=== PATIENT | female | born 1955 | race Caucasian/White ===

== ENCOUNTER 2024-05-27 10:10 | Observation (INO) | payer MEDICARE, MEDICAID, SELFPAY ==
[2024-05-27] VITALS (72 sets, daily range): BP systolic 129–190; BP diastolic 60–108; PULSE 71–89; RESP 14–31; TEMP 36.2–37.3; O2SAT 92–97
--- NOTE | 2024-05-27 10:15 | RT.EKG_ITS ---
APPROVED REPORT Exam: Resting ECG Reason for Exam: chest pain Patient Location: E HR:82 bpm ECG Measurements Heart Rate 82 AXIS WI 155 P 81 QRSd 89 QRS 85 QT 371 T 66 QTc 432 Conclusion Incomplete analysis due to missing data in precordial lead(s) Sinus rhythm...normal P axis, V-rate 60- 99
[2024-05-27 12:22] LABS: Abs Immature Grans 0.02 10^3/uL (0.0-0.06); Absolute Basophil Count 0.05 10^3/uL (0.0-0.2); Absolute Eosinophil Count 0.02 10^3/uL (0.0-0.7); Absolute Monocyte Count 0.63 10^3/uL (0.1-0.8); Absolute Neutrophil Count 4.55 10^3/uL (1.2-6.7); Basophils % 0.8 %; Eosinophils % 0.3 %; HCT 42.2 % (36.0-46.0); HGB 15.1 g/dL (11.2-15.7); Immature Grans % 0.3 %; Lymphocytes % 17.3 %; MCHC 35.8 % (32.0-36.0); MCV 84 fL (80-95); MPV 9.1 fL (8.0-11.0); Monocytes % 9.9 %; Neutrophils % 71.4 %; Platelet Count 205 10^3/uL (130-400); RBC 5.04 10^6/uL (3.93-5.22); RDW 12.4 % (11.7-14.6); RDW-SD 37.5 fL; WBC 6.37 10^3/uL (4.4-10.8)
[2024-05-27] MEDS: MORPHine 4 MG/ML SYR IVP (12:25)
[2024-05-27 12:50] LABS: ALT 52 U/L (14-59); AST 55 U/L (15-37); Albumin 3.8 g/dL (3.4-5.0); Alkaline Phosphatase 197 U/L (46-116); Anion Gap 8.7 mmol/L (3-11); BUN 10 mg/dL (7-18); Bilirubin, Total 0.7 mg/dL (0.2-1.0); CO2 26.3 mmol/L (21.0-32.0); CREATININE 0.5 mg/dL (0.55-1.02); Calcium 9.1 mg/dL (8.5-10.1); Chloride 87 mmol/L (98-107); Glucose 95 mg/dL (74-106); Lipase 38 U/L (<78); NT-proBNP 239 pg/mL (<300); Potassium 4.3 mmol/L (3.5-5.1); Total Protein 7.3 g/dL (6.4-8.2); Troponin I 11 ng/L (<or=51)
[2024-05-27 12:57] LABS: Sodium 122 mmol/L (136-145)
[2024-05-27] MEDS: LORazepam 2 MG/ML VIAL 1 MG IVP (13:27)
[2024-05-27] MEDS: Normal Saline - Diluent 50 ML VIAL IJ (13:43)
[2024-05-27] MEDS: Omnipaque 350 MG/ML 500 ML BTL-Imaging package 70 ML IJ (13:48)
[2024-05-27 13:49] LABS: Troponin I 10 ng/L (<or=51)
--- NOTE | 2024-05-27 13:53 | DI.CT_ITS ---
Exam(s) CT CHEST PE ABD PELVIS W EXAM: CT CHEST PE ABD PELVIS W CLINICAL HISTORY: chest pain, malignency lung. TECHNIQUE: Imaging Protocol: Axial CT angiography was performed with multi-slice acquisition and mu lti-planar and/or 3D reconstructions. Computer aided detection (CAD) was utilized. CONTRAST MATERIAL: Intravenous: Omnipaque 350contrast volume:70 mL COMPARISON: CT CT CHEST WO CONTRAST from 01/03/2024 FINDINGS: CHEST: Tracheobronchial tree: There is a right hilar mass which is compressing the right upper and right low er lobe bronchi. There is also compression of the pulmonary arteries and veins. The mass is shown i nterval increase in size compared to 01/03/2024. It measures at least 3.9 x 5.2 cm. No evidence of bronchiectasis. Pulmonary parenchyma: Moderate emphysematous changes are present in the lungs. The left lung is katherine r. There are infiltrates seen in the right upper and right lower lobes. Postobstructive pneumonia o r atelectasis should be considered. These have progressed since the prior examination. Pulmonary Arteries: No evidence of filling defect to suggest pulmonary emboli. Mediastinum and Carolyn: There is a subcarinal enlarged lymph node present. The esophagus is unremarkab le. Visualized thyroid gland: Unremarkable. Pleura: No effusion or pneumothorax. Heart: The heart is not dilated. Coronary artery calcification is present. No pericardial effusion. Aorta: Thoracic aorta non-dilated. No evidence of dissection. Atherosclerotic calcification is prese nt. Bones: Within normal limits for the patient's age. Stable mild compression deformities at T11 and T12 . Degenerative changes are seen throughout the thoracic spine. No new sclerotic areas are seen in t he bones. Soft tissues: Unremarkable. ABDOMEN: Liver: Normal density. There are innumerable hepatic masses consistent with metastatic disease. Portal, Superior Mesenteric, and Splenic Veins: Unremarkable. Gallbladder and Biliary Tract: No radiodense calculus or dilation. Pancreas: Normal density, no abnormal calcifications or inflammatory process. Spleen: Normal. Adrenals: There is nodularity of the left adrenal gland. Metastatic focus cannot be excluded. The r ight adrenal gland is unremarkable. Kidneys: Normal size, contour and axis. No radiodense stones or obstructive uropathy. There is a simp le left renal cysts. No follow-up is recommended. Abdominal Aorta: Abdominal portion non-dilated. Atherosclerotic calcification is present. Bowel: No obstruction or bowel wall thickening. No evidence of appendicitis. The stomach is incomple tely distended limiting evaluation. Peritoneal Cavity: No ascites, collection or mesenteric inflammatory response. No free air. Lymph Nodes: Within normal limits. Bones: Within normal limits for the patient's age. No aggressive osseous lesions are present. Soft Tissues: There is a very small fat containing umbilical hernia. PELVIS: Bladder: Symmetric distention, no gross wall thickening. Reproductive Organs: There is a 1.9 cm left adnexal cyst which is likely ovarian and physiologic. Lymph Nodes: Within normal limits. Bones: Within normal limits. IMPRESSION: 1. No evidence pulmonary embolism, thoracic aortic dissection or aneurysm. 2. Interval increase in size of the right hilar mass. There is resultant narrowing of the pulmonary arteries, veins and bronchi. 3. Progressive infiltrates are seen in the right upper and the right lower lobes likely reflecting po stobstructive atelectasis or pneumonia. 4. Moderate emphysematous changes are present. 5. Multiple hepatic masses consistent with hepatic metastatic disease. 6. Nodularity of the left adrenal gland. Metastatic focus cannot be excluded. RADIATION DOSE DELIVERED: 464.55mGy.cm Total DLP DATA REPOSITORY: All CT scans at this facility are submitted to the National Radiology Data Registry (NRDR) Dose Index Registry (DIR) with the [employer] (A[employer]). RADIATION OPTIMIZATION: All CT scans at this facility use at least one of these dose optimization te chniques: automated exposure control; mA and/or kV adjustment per patient size (includes targeted exa ms where dose is matched to clinical indication); or iterative reconstruction.
[2024-05-27 14:13] LABS: Bilirubin Negative (Negative); Blood Small (Negative); Clarity Clear (Clear); Glucose Negative (Negative); Ketones Trace mg/dL (Negative); Leukocyte Esterase Negative (Negative); Nitrite Negative (Negative); Urobilinogen 0.2 mg/dL (Up to 0.2); pH 7.5 (5-8)
[2024-05-27 14:32] LABS: Bacteria Few HPF (Negative); C & S Indicated? No; Casts Negative LPF (Negative); Crystals Moderate Amorphous HPF (Negative); Epithelial Cells Few HPF (Negative); Mucus Moderate (Negative); Other Cells Negative (Negative); WBC 0-2 HPF (0-5)
--- NOTE | 2024-05-27 15:55 | ED.GENADUL_ITS ---
Discharge Plan Discharge Details Chief Complaint: SOB Primary Care Provider: Edwardo Valenzuela ED Provider: Natividad Jeronimo Home Meds and New Rx's Prescriptions: No Action Atrovent HFA 17 mcg/actuation HFA aerosol inhaler See Rx Instructions inhalation DIRECTED Rx Instructions: inhaled as directed; vrhleorsmr-ivffxjvkqf-ham-cod [id number] mg capsule 1 cap PO QID PRN oxycodone 5 mg tablet 5 mg PO BID PRN albuterol sulfate [Ventolin HFA] 90 mcg/actuation HFA aerosol inhaler See Rx Instructions inhalation DIRECTED Rx Instructions: inhaled as directed; HPI General Date/Time Provider Initiated Documentation: 05/27/24 10:12 . HPI Narrative: The patient is a 68-year-old female with a history of tobacco abuse, COPD, and migraine headaches who presents with chest pain, shortness of breath, and weakness. She reports that these symptoms began this morning, prompting her to seek immediate medical attention. She is scheduled for a bronchoscopy at [facility] on 06/06/2023 but due to the onset of chest pain and weakness, she sought immediate medical attention. The majority of her care has been done at [facility], but she would like a second opinion. She does not have any hemoptysis or new calf pain or swelling. She continues to smoke tobacco and has experienced weight loss. Related Data Home Medications ?Medication ?Instructions ?Recorded ?Confirmed albuterol sulfate 90 mcg/actuation See Rx Instructions inhalation 01/11/24 05/27/24 aerosol inhaler (Ventolin HFA) DIRECTED butalbital 50 mg-acetaminophen 325 1 cap PO QID PRN 01/11/24 05/27/24 mg-caffeine 40 mg-codeine 30 mg cap ipratropium bromide 17 See Rx Instructions inhalation 01/11/24 05/27/24 mcg/actuation HFA aerosol inhaler DIRECTED (Atrovent HFA) oxycodone 5 mg tablet 5 mg PO BID PRN 01/11/24 05/27/24 Allergies Allergy/AdvReac Type Severity Reaction Status Date / Time aspirin Allergy Unknown Unknown Verified 01/11/24 14:15 prednisone Allergy Unknown Unknown Verified 01/11/24 14:15 tetracycline Allergy Unknown Unknown Verified 01/11/24 14:15 insect venom AdvReac Unknown urticaria Verified 01/11/24 14:15 Penicillins AdvReac Unknown urticaria Verified 01/11/24 14:15 General Stated Complaint: SOB ROBERT: 3 Exam Narrative Exam Narrative: General Appearance: Patient is alert and oriented, but very anxious. Vital signs: Within normal limits. HEENT: Within normal limits. Respiratory: Diminished lung sounds are noted bilaterally. Gastrointestinal: No abdominal tenderness is present. Skin: Warm and dry, no rash. Neurological: Patient is fully alert and oriented, showing no signs of respiratory distress. Psychiatric: Patient is very anxious. Course Vital Signs Vital signs: Vital Signs Pulse 80 05/27/24 10:30 Respiratory Rate 18 05/27/24 10:30 Blood Pressure 183/97 H 05/27/24 10:30 Pulse Oximetry 95 05/27/24 10:30 Pulse 79 05/27/24 14:46 Pulse 80 05/27/24 14:50 Respiratory Rate 24 05/27/24 14:50 Respiratory Effort Normal, Non-Labored 05/27/24 12:17 Respiratory Depth Normal 05/27/24 12:17 Respiratory Pattern Normal 05/27/24 12:17 Blood Pressure 163/94 H 05/27/24 14:46 Blood Pressure Mean 114 05/27/24 14:46 Blood Pressure Position Sitting 05/27/24 12:16 Pulse Oximetry 94 05/27/24 14:31 Oxygen Delivery Method Room Air 05/27/24 12:16 Oxygen Flow Rate 0 05/27/24 12:16 Pain Level 7 05/27/24 12:25 Comment shoulder up into neck/spine 05/27/24 12:16 Lab/Test Results Lab/Test Results: Laboratory Tests Range/Units 05/27/24 05/27/24 05/27/24 12:13 13:20 13:33 WBC (4.4-10.8) 10^3/uL 6.37 RBC (3.93-5.22) 10^6/uL 5.04 Hgb (11.2-15.7) g/dL 15.1 Hct (36.0-46.0) % 42.2 MCV (80-95) fL 84 MCH (27.0-33.0) pg 30.0 MCHC (32.0-36.0) % 35.8 RDW (11.7-14.6) % 12.4 Plt Count (130-400) 10^3/uL 205 MPV (8.0-11.0) fL 9.1 Immature Gran % % 0.3 Neutrophils % % 71.4 Lymphocytes % % 17.3 Monocytes % % 9.9 Eosinophils % % 0.3 Basophils % % 0.8 Nucleated RBC % (0.0-0.3) % 0.0 Absolute Neutrophils (1.2-6.7) 10^3/uL 4.55 Absolute Lymphocytes (1.2-3.4) 10^3/uL 1.10 L Absolute Monocytes (0.1-0.8) 10^3/uL 0.63 Absolute Eosinophils (0.0-0.7) 10^3/uL 0.02 Absolute Basophils (0.0-0.2) 10^3/uL 0.05 Sodium (136-145) mmol/L 122 L* Potassium (3.5-5.1) mmol/L 4.3 Chloride (98-107) mmol/L 87 L Carbon Dioxide (21.0-32.0) mmol/L 26.3 Anion Gap (3-11) mmol/L 8.7 BUN (7-18) mg/dL 10 Creatinine (0.55-1.02) mg/dL 0.5 L Est GFR (CKD-EPI 2020) (mL/min/1.73m2) 102.10 Glucose (74-106) mg/dL 95 Calcium (8.5-10.1) mg/dL 9.1 Total Bilirubin (0.2-1.0) mg/dL 0.7 AST (15-37) U/L 55 H ALT (14-59) U/L 52 Alkaline Phosphatase (46-116) U/L 197 H Troponin I (<or=51) ng/L 11 10 NT-Pro-B Natriuret Pep (<300) pg/mL 239 Total Protein (6.4-8.2) g/dL 7.3 Albumin (3.4-5.0) g/dL 3.8 Lipase (<78) U/L 38 Urine Color (Yellow) Yellow Urine Clarity (Clear) Clear Urine pH (5-8) 7.5 Ur Specific [place] (1.005-1.025) 1.020 Urine Protein (Neg-Trace) mg/dL 100 H Urine Ketones (Negative) mg/dL Trace H Urine Blood (Negative) Small H Urine Nitrite (Negative) Negative Urine Bilirubin (Negative) Negative Urine Urobilinogen (Up to 0.2) mg/dL 0.2 Ur Leukocyte Esterase (Negative) Negative Urine RBC (0-2) HPF 3-5 H Urine WBC (0-5) HPF 0-2 Ur Epithelial Cells (Negative) HPF Few Urine Crystals (Negative) HPF Moderate Amorphous Urine Bacteria (Negative) HPF Few Urine Casts (Negative) LPF Negative Urine Mucus (Negative) Moderate Urine Other (Negative) Negative Ur Culture Indicated? No Urine Glucose (Negative) mg/dL Negative Medical Decision Making Laboratory Studies Hyponatremia at 122 and hypochloremia at 87. Imaging CTA chest, abdomen, and pelvis shows perihilar lung mass compressing on pulmonary arteries and vein with concern for metastases to liver on CT abdomen and pelvis. No obvious pulmonary embolism. Initial Assessment: 68-year-old female with history of tobacco abuse, COPD, and migraine headaches presents with chest pain, shortness of breath, and weakness. Scheduled for bronchoscopy at [facility] on the but presents due to acute symptoms. Differential Diagnosis: - Pulmonary carcinoma: Suspected due to lung mass seen on CTA compressing pulmonary arteries and veins. Potential metastases to liver noted on CT abdomen and pelvis. No definitive diagnosis of SIADH but considered due to hyponatremia. ED Course: - Ordered CTA chest, abdomen, and pelvis. - CTA shows perihilar lung mass compressing pulmonary arteries and veins, concern for metastases to liver. - No pulmonary embolism noted. - Labs: Hyponatremia at 122, hypochloremia at 87. - Contacted [facility] for transfer due to worsening symptoms and need for expedited care. - Care transitioned to oncoming provider at 1554. Final Assessment: Patient with chest pain, shortness of breath, and weakness likely related to lung mass and hyponatremia. CTA and labs reviewed, transfer to [facility] initiated for further care. Clinical Impression: - Chest pain - Pulmonary carcinoma - Hyponatremia Disposition: - Transfer: Pending transfer to [facility] for expedited care. MDM Components Evaluation: - Number of Differential Diagnoses or Management Options: Pulmonary carcinoma, SIADH. - Amount and Complexity of Data Reviewed: CTA chest, abdomen, and pelvis; lab results. - Risk of Complication and Morbidity or Mortality: High due to potential metastases and severe hyponatremia. Quality:SDND Health Related Social Needs: No Data to Display PFSH All Active Problems (Updated 01/11/24 @ 13:57 by Marilia Dove) Sacroiliac inflammation (Acute) Osteopenia (Acute) Nicotine dependence (Acute) Neck pain (Acute) Migraine (Chronic) Malignant neoplasm of skin (Acute) Lyme disease (Acute) Lung nodules (Acute) Hypoglycemia (Acute) History of Lyme disease (Acute) History of chest pain (Acute) Exposure to lead (Acute) Disc disease, degenerative, lumbar or lumbosacral (Acute) Degeneration of cervical intervertebral disc (Acute) Chronic pain (Chronic) COPD (chronic obstructive pulmonary disease) (Chronic) Arthropathy (Acute) Medical History (Updated 01/11/24 @ 13:57 by Marilia Dove) Medication monitoring encounter Hepatitis C carrier Chronic hepatitis C Allergic rhinitis Surgical History (Updated 01/11/24 @ 14:08 by Marilia Dove) Hx of removal of cyst H/O tubal ligation H/O laparoscopy 03/20/2002 Family History (Updated 01/11/24 @ 14:10 by Marilia Dove) Mother Amyotrophic lateral sclerosis Heart disease Hx of osteoporosis Father Cancer Social History (Updated 01/11/24 @ 14:17 by Marilia Dove) Smoking/Tobacco Use Status: Current every day Tobacco: How many years used: 40 Smoking risk assessment performed?: Yes Additional Social history: 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
[2024-05-27 15:57] LABS: Troponin I 13 ng/L (<or=51)
--- NOTE | 2024-05-27 16:14 | W.EDPROG ---
Date of service: 05/27/24 Time of Service: 16:14 Medical Decision Making This dictation utilizes [id number] dictation software and may contain unedited grammatical errors. Patient seen in signout from Natividad Jeronimo PA-C, please see her complete note. Essentially this 68-year-old female has had bouts of numerous pneumonias, lung nodules, has seen her PCP at the [facility] feels her needs are not being met-she has an appointment with [facility] pulmonology on 06/05 with likely bronc on 06/06. She presents today with increasing shortness of breath and tachycardia with any movement and feels profoundly weak, she had a PE study which shows central spiculated large lung mass which is causing compression on pulmonary anatomy, her sodium is 122 likely needing admission, pending [facility] consult. Her vitals are currently stable on room air and 94 to 95% SpO2. Patients' medical history: Chronic hepatitis C, heavy smoking history, osteopenia, malignant neoplasm of skin, history of Lyme disease, history of lung nodules, chronic pain, COPD, exposure to lead. Family and social history: Current heavy smoker. Diagnostic studies of: -Reviewed studies by prior provider. -Central lung mass, question small cell -Sodium 122 -No PE Added Covid/Flu/RSV PCR - pending at time of admission Interventions of: -Spoke with [facility]monology, Dr. Glover, at 1615 Dr. Glover-he recommends that she be transferred to a floor bed at [facility] to hospital medicine with interventional pulmonology consulting with a likely urgent bronc and possible stenting, recommend she start on DVT prophylaxis and be n.p.o. after midnight-they are listing for tomorrow -Spoke with [facility] hospitalist, Dr. Marsh, at 1623 - Accepts for admission, likely transfer tomorrow -Will hold on [facility] floor until transfer, hospitalist notified @ 1700 hrs, Nohelia Bullard accepting. -needs slow NS, patient confirmed they have taken ASA and had no reaction, reasonable for DVT prophylaxis choice in-patient. ED Course/Assessment/Plan: 68-year-old female with unbiopsied known lung mass presents with chest pain, shortness of breath, weakness especially with activity, likely due to patients hyponatremia of 122. Patient is accepted for transfer to [facility] for floor admission, to be admitted to [facility] floor pending transfer for likely bronchoscopy and possible stenting tomorrow due to compression of her lung mass on other pulmonary structures. Patient aware and agrees for transfer. Findings not consistent with respiratory failure. Disposition of Lung Mass, Hyponatremia. Patient verbalized understanding of the plan and return to ED criteria and engaged in shared decision making. Medical Records Medical records reviewed: Yes I reviewed the patient's medical records. Imaging Data Radiologic Study: Attestation: I personally reviewed and interpreted this imaging study as follows: Imaging: CT Scan Radiologist's impression: EXAM: CT CHEST PE ABD PELVIS W CLINICAL HISTORY: chest pain, malignency lung. TECHNIQUE: Imaging Protocol: Axial CT angiography was performed with multi-slice acquisition and multi-planar and/or 3D reconstructions. Computer aided detection (CAD) was utilized. CONTRAST MATERIAL: Intravenous: Omnipaque 350contrast volume:70 mL COMPARISON: CT CT CHEST WO CONTRAST from 01/03/2024 FINDINGS: CHEST: Tracheobronchial tree: There is a right hilar mass which is compressing the right upper and right lower lobe bronchi. There is also compression of the pulmonary arteries and veins. The mass is shown interval increase in size compared to 01/03/2024. It measures at least 3.9 x 5.2 cm. No evidence of bronchiectasis. Pulmonary parenchyma: Moderate emphysematous changes are present in the lungs. The left lung is clear. There are infiltrates seen in the right upper and right lower lobes. Postobstructive pneumonia or atelectasis should be considered. These have progressed since the prior examination. Pulmonary Arteries: No evidence of filling defect to suggest pulmonary emboli. Mediastinum and Carolyn: There is a subcarinal enlarged lymph node present. The esophagus is unremarkable. Visualized thyroid gland: Unremarkable. Pleura: No effusion or pneumothorax. Heart: The heart is not dilated. Coronary artery calcification is present. No pericardial effusion. Aorta: Thoracic aorta non-dilated. No evidence of dissection. Atherosclerotic calcification is present. Bones: Within normal limits for the patient's age. Stable mild compression deformities at T11 and T12. Degenerative changes are seen throughout the thoracic spine. No new sclerotic areas are seen in the bones. Soft tissues: Unremarkable. ABDOMEN: Liver: Normal density. There are innumerable hepatic masses consistent with metastatic disease. Portal, Superior Mesenteric, and Splenic Veins: Unremarkable. Gallbladder and Biliary Tract: No radiodense calculus or dilation. Pancreas: Normal density, no abnormal calcifications or inflammatory process. Spleen: Normal. Adrenals: There is nodularity of the left adrenal gland. Metastatic focus cannot be excluded. The right adrenal gland is unremarkable. Kidneys: Normal size, contour and axis. No radiodense stones or obstructive uropathy. There is a simple left renal cysts. No follow-up is recommended. Abdominal Aorta: Abdominal portion non-dilated. Atherosclerotic calcification is present. Bowel: No obstruction or bowel wall thickening. No evidence of appendicitis. The stomach is incompletely distended limiting evaluation. Peritoneal Cavity: No ascites, collection or mesenteric inflammatory response. No free air. Lymph Nodes: Within normal limits. Bones: Within normal limits for the patient's age. No aggressive osseous lesions are present. Soft Tissues: There is a very small fat containing umbilical hernia. PELVIS: Bladder: Symmetric distention, no gross wall thickening. Reproductive Organs: There is a 1.9 cm left adnexal cyst which is likely ovarian and physiologic. Lymph Nodes: Within normal limits. Bones: Within normal limits. IMPRESSION: 1. No evidence pulmonary embolism, thoracic aortic dissection or aneurysm. 2. Interval increase in size of the right hilar mass. There is resultant narrowing of the pulmonary arteries, veins and bronchi. 3. Progressive infiltrates are seen in the right upper and the right lower lobes likely reflecting postobstructive atelectasis or pneumonia. 4. Moderate emphysematous changes are present. 5. Multiple hepatic masses consistent with hepatic metastatic disease. 6. Nodularity of the left adrenal gland. Metastatic focus cannot be excluded. Lab Data Lab results reviewed: Yes I reviewed the patient's lab results. Labs: Laboratory Tests Range/Units 05/27/24 05/27/24 05/27/24 12:13 13:20 13:33 WBC (4.4-10.8) 10^3/uL 6.37 RBC (3.93-5.22) 10^6/uL 5.04 Hgb (11.2-15.7) g/dL 15.1 Hct (36.0-46.0) % 42.2 MCV (80-95) fL 84 MCH (27.0-33.0) pg 30.0 MCHC (32.0-36.0) % 35.8 RDW (11.7-14.6) % 12.4 Plt Count (130-400) 10^3/uL 205 MPV (8.0-11.0) fL 9.1 Immature Gran % % 0.3 Neutrophils % % 71.4 Lymphocytes % % 17.3 Monocytes % % 9.9 Eosinophils % % 0.3 Basophils % % 0.8 Nucleated RBC % (0.0-0.3) % 0.0 Absolute Neutrophils (1.2-6.7) 10^3/uL 4.55 Absolute Lymphocytes (1.2-3.4) 10^3/uL 1.10 L Absolute Monocytes (0.1-0.8) 10^3/uL 0.63 Absolute Eosinophils (0.0-0.7) 10^3/uL 0.02 Absolute Basophils (0.0-0.2) 10^3/uL 0.05 Sodium (136-145) mmol/L 122 L* Potassium (3.5-5.1) mmol/L 4.3 Chloride (98-107) mmol/L 87 L Carbon Dioxide (21.0-32.0) mmol/L 26.3 Anion Gap (3-11) mmol/L 8.7 BUN (7-18) mg/dL 10 Creatinine (0.55-1.02) mg/dL 0.5 L Est GFR (CKD-EPI 2020) (mL/min/1.73m2) 102.10 Glucose (74-106) mg/dL 95 Calcium (8.5-10.1) mg/dL 9.1 Total Bilirubin (0.2-1.0) mg/dL 0.7 AST (15-37) U/L 55 H ALT (14-59) U/L 52 Alkaline Phosphatase (46-116) U/L 197 H Troponin I (<or=51) ng/L 11 10 NT-Pro-B Natriuret Pep (<300) pg/mL 239 Total Protein (6.4-8.2) g/dL 7.3 Albumin (3.4-5.0) g/dL 3.8 Lipase (<78) U/L 38 Urine Color (Yellow) Yellow Urine Clarity (Clear) Clear Urine pH (5-8) 7.5 Ur Specific [place] (1.005-1.025) 1.020 Urine Protein (Neg-Trace) mg/dL 100 H Urine Ketones (Negative) mg/dL Trace H Urine Blood (Negative) Small H Urine Nitrite (Negative) Negative Urine Bilirubin (Negative) Negative Urine Urobilinogen (Up to 0.2) mg/dL 0.2 Ur Leukocyte Esterase (Negative) Negative Urine RBC (0-2) HPF 3-5 H Urine WBC (0-5) HPF 0-2 Ur Epithelial Cells (Negative) HPF Few Urine Crystals (Negative) HPF Moderate Amorphous Urine Bacteria (Negative) HPF Few Urine Casts (Negative) LPF Negative Urine Mucus (Negative) Moderate Urine Other (Negative) Negative Ur Culture Indicated? No Urine Glucose (Negative) mg/dL Negative Range/Units 05/27/24 15:15 WBC (4.4-10.8) 10^3/uL RBC (3.93-5.22) 10^6/uL Hgb (11.2-15.7) g/dL Hct (36.0-46.0) % MCV (80-95) fL MCH (27.0-33.0) pg MCHC (32.0-36.0) % RDW (11.7-14.6) % Plt Count (130-400) 10^3/uL MPV (8.0-11.0) fL Immature Gran % % Neutrophils % % Lymphocytes % % Monocytes % % Eosinophils % % Basophils % % Nucleated RBC % (0.0-0.3) % Absolute Neutrophils (1.2-6.7) 10^3/uL Absolute Lymphocytes (1.2-3.4) 10^3/uL Absolute Monocytes (0.1-0.8) 10^3/uL Absolute Eosinophils (0.0-0.7) 10^3/uL Absolute Basophils (0.0-0.2) 10^3/uL Sodium (136-145) mmol/L Potassium (3.5-5.1) mmol/L Chloride (98-107) mmol/L Carbon Dioxide (21.0-32.0) mmol/L Anion Gap (3-11) mmol/L BUN (7-18) mg/dL Creatinine (0.55-1.02) mg/dL Est GFR (CKD-EPI 2020) (mL/min/1.73m2) Glucose (74-106) mg/dL Calcium (8.5-10.1) mg/dL Total Bilirubin (0.2-1.0) mg/dL AST (15-37) U/L ALT (14-59) U/L Alkaline Phosphatase (46-116) U/L Troponin I (<or=51) ng/L 13 NT-Pro-B Natriuret Pep (<300) pg/mL Total Protein (6.4-8.2) g/dL Albumin (3.4-5.0) g/dL Lipase (<78) U/L Urine Color (Yellow) Urine Clarity (Clear) Urine pH (5-8) Ur Specific [place] (1.005-1.025) Urine Protein (Neg-Trace) mg/dL Urine Ketones (Negative) mg/dL Urine Blood (Negative) Urine Nitrite (Negative) Urine Bilirubin (Negative) Urine Urobilinogen (Up to 0.2) mg/dL Ur Leukocyte Esterase (Negative) Urine RBC (0-2) HPF Urine WBC (0-5) HPF Ur Epithelial Cells (Negative) HPF Urine Crystals (Negative) HPF Urine Bacteria (Negative) HPF Urine Casts (Negative) LPF Urine Mucus (Negative) Urine Other (Negative) Ur Culture Indicated? Urine Glucose (Negative) mg/dL Quality:SDOH Health Related Social Needs: No Data to Display Discharge Plan Discharge Details Chief Complaint: SOB Primary Care Provider: Edwardo Valenzuela ED Provider: Baldev Jacobs Home Meds and New Rx's Prescriptions: No Action Atrovent HFA 17 mcg/actuation HFA aerosol inhaler See Rx Instructions inhalation DIRECTED Rx Instructions: inhaled as directed; [id number] [id number] mg capsule 1 cap PO QID PRN oxycodone 5 mg tablet 5 mg PO BID PRN albuterol sulfate [Ventolin HFA] 90 mcg/actuation HFA aerosol inhaler See Rx Instructions inhalation DIRECTED Rx Instructions: inhaled as directed;
[2024-05-27 17:45] LABS: COVID-19 PCR Negative (Negative); Influenza A PCR Negative (Negative); Influenza B PCR Negative (Negative); RSV PCR Negative (Negative)
[2024-05-27 17:50] LABS: Source Nasopharynx
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
--- NOTE | 2024-05-27 18:52 | HPE_ITS ---
Date of service: 05/27/24 Time of Service: 18:53 Assessment and Plan Assessment and plan (1) Lung nodules: Status: Acute Assessment and plan: Pulmonary carcinoma: The central lung mass seen on CTA with associated compression of pulmonary arteries and veins, and possible liver metastasis, is concerning for malignancy. CT: 1. No evidence pulmonary embolism, thoracic aortic dissection or aneurysm. 2. Interval increase in size of the right hilar mass. There is resultant narrowing of the pulmonary arteries, veins and bronchi. 3. Progressive infiltrates are seen in the right upper and the right lower lobes likely reflecting postobstructive atelectasis or pneumonia. 4. Moderate emphysematous changes are present. 5. Multiple hepatic masses consistent with hepatic metastatic disease. 6. Nodularity of the left adrenal gland. Metastatic focus cannot be excluded. Earnest CHOWDHURY in ED Spoke with [facility] [place], Dr. Glover, at 1615 Dr. Glover recommends that patient be transferred to a floor bed at [facility] to hospital medicine with interventional pulmonology consulting with a likely urgent bronc and possible stenting, recommend she start on DVT prophylaxis and be n.p.o. after midnight-they are listing for tomorrow -Spoke with [facility] [place], Dr. Marsh, at 1623 - Accepts for admission, likely transfer 05/28/2024 (2) Hyponatremia: Status: Acute Assessment and plan: 180?mL/hr Fluid rate to increase Na by 0.5 mmol/L/hr with NS BMP q6h adjust NS IV rate accordingly (3) Nicotine dependence: Status: Acute Assessment and plan: offer nicotine replacement (4) COPD (chronic obstructive pulmonary disease): Status: Chronic Assessment and plan: Monitor SPO2 O2 prn SPO2 < 88% on room air RT assessment (5) Chronic pain: Status: Chronic Assessment and plan: Continue home medications Oxycodone 5 mg BID prn pain (6) Anxiety: Status: Chronic Assessment and plan: Offer lorazepam orally - helped in the ED (IV dose there) (7) DVT prophylaxis: Status: Acute Assessment and plan: Enoxaparin 30 mg q 24h (weight) History of Present Illness History of Present Illness Chief Complaint: Chest pain and shortness of breath Narrative: The patient is a 68-year-old female with a significant medical history of tobacco abuse, COPD, and migraine headaches. She presents to the emergency department with complaints of chest pain, shortness of breath, and weakness that began earlier this morning. The patient was scheduled for a bronchoscopy at [facility] on 06/06/2023 but sought immediate medical attention due to the acute onset of these symptoms. Her chest pain and shortness of breath have worsened, particularly with any activity, and she reports feeling profoundly weak. She denies any hemoptysis, calf pain, or swelling. The patient continues to smoke and has noticed recent weight loss. Her majority of care has been at [facility], though she is seeking a second opinion. Clinical Summary and Assessment: * Salgado findings: * The patient is a 68-year-old female with a history of tobacco abuse, COPD, and migraine headaches. * Chest pain, shortness of breath, and weakness are the primary presenting symptoms. * Imaging, including a CTA chest, reveals a central spiculated lung mass with compression on pulmonary structures, raising concern for pulmonary carcinoma. * There is evidence of possible metastases to the liver on CT of the abdomen and pelvis. * Hyponatremia (122 mEq/L) and hypochloremia (87 mEq/L) noted in lab results. * No signs of pulmonary embolism . * * Primary diagnosis: * Pulmonary carcinoma: The central lung mass seen on CTA with associated compression of pulmonary arteries and veins, and possible liver metastasis, is concerning for malignancy. * Hyponatremia: The patient's low sodium may be related to SIADH potentially linked to the malignancy. ED Course: * CTA chest, abdomen, and pelvis were reviewed, showing a central lung mass and possible liver metastases. * Labs were notable for hyponatremia and hypochloremia. * The patient?s vital signs are stable, with SpO2 between 94-95% on room air. * A discussion with [facility] Pulmonology and hospitalist teams confirmed the plan for transfer and admission. * Viral panel negative * Plan: * Transfer to [facility] for further management, including a likely bronchoscopy and possible stenting due to the mass's compression of the pulmonary anatomy when bed is available. * Start on DVT prophylaxis and NPO status after midnight in preparation for potential bronchoscopy the following day. * Normal saline IV at 125 ml/h - BMP every 6 hours until electrolytes are stable at baseline * Patient is admitted to the [facility] floor pending transfer. Disposition: * The patient is being transferred to [facility] for continued evaluation and management, including further pulmonary interventions. * The patient verbally agrees to the transfer plan and understands the rationale behind it. She will remain in the [facility] until transport arrangements are finalized. Review of Systems All systems reviewed & are unremarkable except as noted in HPI and below PFSH All Active Problems (Updated 05/27/24 @ 19:29 by Nohelia Resendiz NP) DVT prophylaxis (Acute) Anxiety (Chronic) Hyponatremia (Acute) Sacroiliac inflammation (Acute) Osteopenia (Acute) Nicotine dependence (Acute) Neck pain (Acute) Migraine (Chronic) Malignant neoplasm of skin (Acute) Lyme disease (Acute) Lung nodules (Acute) Hypoglycemia (Acute) History of Lyme disease (Acute) History of chest pain (Acute) Exposure to lead (Acute) Disc disease, degenerative, lumbar or lumbosacral (Acute) Degeneration of cervical intervertebral disc (Acute) Chronic pain (Chronic) COPD (chronic obstructive pulmonary disease) (Chronic) Arthropathy (Acute) Medical History (Updated 05/27/24 @ 19:29 by Nohelia Resendiz NP) Medication monitoring encounter Hepatitis C carrier Chronic hepatitis C Allergic rhinitis Surgical History (Updated 01/11/24 @ 14:08 by Marilia Dove) Hx of removal of cyst H/O tubal ligation H/O laparoscopy 03/20/2002 Family History (Updated 01/11/24 @ 14:10 by Marilia Dove) Mother Amyotrophic lateral sclerosis Heart disease Hx of osteoporosis Father Cancer Social History (Updated 01/11/24 @ 14:17 by Marilia Dove) Smoking/Tobacco Use Status: Current every day Tobacco: How many years used: 40 Smoking risk assessment performed?: Yes Additional Social history: 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 Meds Allergies and Home Medications Allergies Allergy/AdvReac Type Severity Reaction Status Date / Time aspirin Allergy Unknown Unknown Verified 01/11/24 14:15 prednisone Allergy Unknown Unknown Verified 01/11/24 14:15 tetracycline Allergy Unknown Unknown Verified 01/11/24 14:15 insect venom AdvReac Unknown urticaria Verified 01/11/24 14:15 Penicillins AdvReac Unknown urticaria Verified 01/11/24 14:15 Home Medications ?Medication ?Instructions ?Recorded ?Confirmed ?Type albuterol sulfate 90 mcg/actuation See Rx Instructions inhalation 01/11/24 05/27/24 History aerosol inhaler (Ventolin HFA) DIRECTED butalbital 50 mg-acetaminophen 325 1 cap PO QID PRN 01/11/24 05/27/24 History mg-caffeine 40 mg-codeine 30 mg cap ipratropium bromide 17 See Rx Instructions inhalation 01/11/24 05/27/24 History mcg/actuation HFA aerosol inhaler DIRECTED (Atrovent HFA) oxycodone 5 mg tablet 5 mg PO BID PRN 01/11/24 05/27/24 History Exam Narrative Exam Narrative: General Appearance: Patient is alert and oriented Vital signs: Within normal limits. HEENT: Within normal limits. Respiratory: Diminished lung sounds are noted bilaterally. Gastrointestinal: No abdominal tenderness is present. Skin: Warm and dry, no rash. Neurological: Patient is fully alert and oriented, showing no signs of respiratory distress. Psychiatric: Patient is anxious. Results Labs 05/27/24 12:13 05/27/24 12:13 Labs: Laboratory Results - last 24 hr 05/27/24 05/27/24 05/27/24 12:13 13:20 13:33 WBC 6.37 RBC 5.04 Hgb 15.1 Hct 42.2 MCV 84 MCH 30.0 MCHC 35.8 RDW 12.4 Plt Count 205 MPV 9.1 Immature Gran % 0.3 Neutrophils % 71.4 Lymphocytes % 17.3 Monocytes % 9.9 Eosinophils % 0.3 Basophils % 0.8 Nucleated RBC % 0.0 Absolute Neutrophils 4.55 Absolute Lymphocytes 1.10 L Absolute Monocytes 0.63 Absolute Eosinophils 0.02 Absolute Basophils 0.05 Sodium 122 L* Potassium 4.3 Chloride 87 L Carbon Dioxide 26.3 Anion Gap 8.7 BUN 10 Creatinine 0.5 L Est GFR (CKD-EPI 2020) 102.10 Glucose 95 Calcium 9.1 Total Bilirubin 0.7 AST 55 H ALT 52 Alkaline Phosphatase 197 H Troponin I 11 10 NT-Pro-B Natriuret Pep 239 Total Protein 7.3 Albumin 3.8 Lipase 38 Urine Color Yellow Urine Clarity Clear Urine pH 7.5 Ur Specific [place]by 1.020 Urine Protein 100 H Urine Ketones Trace H Urine Blood Small H Urine Nitrite Negative Urine Bilirubin Negative Urine Urobilinogen 0.2 Ur Leukocyte Esterase Negative Urine RBC 3-5 H Urine WBC 0-2 Ur Epithelial Cells Few Urine Crystals Moderate Amorphous Urine Bacteria Few Urine Casts Negative Urine Mucus Moderate Urine Other Negative Ur Culture Indicated? No Urine Glucose Negative COVID-19 Source SARS-CoV-2 (PCR) Influenza Type A (PCR) Influenza Type B (PCR) RSV (PCR) 05/27/24 05/27/24 15:15 17:04 WBC RBC Hgb Hct MCV MCH MCHC RDW Plt Count MPV Immature Gran % Neutrophils % Lymphocytes % Monocytes % Eosinophils % Basophils % Nucleated RBC % Absolute Neutrophils Absolute Lymphocytes Absolute Monocytes Absolute Eosinophils Absolute Basophils Sodium Potassium Chloride Carbon Dioxide Anion Gap BUN Creatinine Est GFR (CKD-EPI 2020) Glucose Calcium Total Bilirubin AST ALT Alkaline Phosphatase Troponin I 13 NT-Pro-B Natriuret Pep Total Protein Albumin Lipase Urine Color Urine Clarity Urine pH Ur Specific [place] Urine Protein Urine Ketones Urine Blood Urine Nitrite Urine Bilirubin Urine Urobilinogen Ur Leukocyte Esterase Urine RBC Urine WBC Ur Epithelial Cells Urine Crystals Urine Bacteria Urine Casts Urine Mucus Urine Other Ur Culture Indicated? Urine Glucose COVID-19 Source Nasopharynx SARS-CoV-2 (PCR) Negative Influenza Type A (PCR) Negative Influenza Type B (PCR) Negative RSV (PCR) Negative Last Vital Signs Temp 37.3 C 05/27/24 18:26 Pulse 79 05/27/24 18:26 Resp 22 05/27/24 18:26 BP 143/79 H 05/27/24 18:26 Pulse Ox 97 05/27/24 18:26 Time Spent Time spent with Patient: 55-74 minutes Time was spent: preparing to see the patient(eg.review tests), obtaining and/or reviewing separately otained hiistory, ordering medications,tests, procedures, referring, communicating with other health attending ambulatory care, indepentently interpreting results, counseling the patient and care coordination
[2024-05-27] MEDS: Normal Saline Flush 10 ML SYR IVP ×2 (19:05→20:06)
[2024-05-27] MEDS: Enoxaparin 40 MG/0.4 ML SYR SC (19:05)
[2024-05-27 19:29] LABS: Anion Gap 9.6 mmol/L (3-11); BUN 11 mg/dL (7-18); CO2 24.4 mmol/L (21.0-32.0); CREATININE 0.5 mg/dL (0.55-1.02); Calcium 8.9 mg/dL (8.5-10.1); Chloride 89 mmol/L (98-107); Glucose 107 mg/dL (74-106)
[2024-05-27 19:32] LABS: Sodium 123 mmol/L (136-145)
[2024-05-27] MEDS: LORazepam 1 MG TAB PO (19:40)
[2024-05-27] MEDS: Normal Saline 1,000 ML 180 ML IV (19:41)
[2024-05-27] MEDS: HYDROmorphone 2 MG/ML SYR 0.5 MG IVP (20:06)
[2024-05-27] MEDS: Ipratropium 0.5 MG/2.5 ML UPD VIAL UPD (20:07)
[2024-05-27] MEDS: AZITHROMYCIN 500 MG in Normal Saline 250 ML 250 MG IVPB (21:00)
[2024-05-27] MEDS: Water,Injection,Sterile 10 ML VIAL (21:02)
[2024-05-28] VITALS (9 sets, daily range): BP systolic 135–145; BP diastolic 75–90; PULSE 69–79; RESP 5–19; TEMP 36.5–36.9; O2SAT 91–95
[2024-05-28] MEDS: Ipratropium 0.5 MG/2.5 ML UPD VIAL UPD ×3 (02:10→13:30)
[2024-05-28] MEDS: Normal Saline 1,000 ML 180 ML IV (02:11)
[2024-05-28] MEDS: Albuterol 2.5 MG/3 ML INH SOLN VIAL UPD (06:42)
[2024-05-28] MEDS: LORazepam 1 MG TAB PO (06:51)
[2024-05-28 06:54] LABS: Abs Immature Grans 0.02 10^3/uL (0.0-0.06); Absolute Basophil Count 0.05 10^3/uL (0.0-0.2); Absolute Eosinophil Count 0.07 10^3/uL (0.0-0.7); Absolute Lymphocyte Count 1.09 10^3/uL (1.2-3.4); Absolute Monocyte Count 0.73 10^3/uL (0.1-0.8); Absolute Neutrophil Count 3.23 10^3/uL (1.2-6.7); Eosinophils % 1.3 %; HGB 13.4 g/dL (11.2-15.7); Immature Grans % 0.4 %; MCH 29.5 pg (27.0-33.0); MCHC 35.3 % (32.0-36.0); MCV 84 fL (80-95); MPV 9.1 fL (8.0-11.0); Monocytes % 14.1 %; Neutrophils % 62.2 %; Platelet Count 172 10^3/uL (130-400); RBC 4.54 10^6/uL (3.93-5.22); RDW 12.3 % (11.7-14.6); RDW-SD 37.2 fL; WBC 5.19 10^3/uL (4.4-10.8)
[2024-05-28 07:19] LABS: Anion Gap 6.7 mmol/L (3-11); BUN 9 mg/dL (7-18); CO2 24.3 mmol/L (21.0-32.0); CREATININE 0.5 mg/dL (0.55-1.02); Calcium 8.1 mg/dL (8.5-10.1); Chloride 93 mmol/L (98-107); Glucose 92 mg/dL (74-106); Magnesium 1.7 mg/dL (1.8-2.4); Potassium 3.7 mmol/L (3.5-5.1)
[2024-05-28 07:21] LABS: Sodium 124 mmol/L (136-145)
[2024-05-28] MEDS: Normal Saline Flush 10 ML SYR IVP (07:55)
--- NOTE | 2024-05-28 08:17 | RESPIRATORY ---
RT Initial Evalutation/Assessment Start: 05/27/24 19:19 Freq: .q shift and prn Status: Active Protocol: Document 05/28/24 08:12 (Rec: 05/28/24 08:17 [id number]) RT Assessment Pulmonary History Pulmonary History COPD,Other Smoking History Smoking/Tobacco Use Status Former Tobacco Use Tobacco: How many years used 30 Quit Date 04/07/24 Tobacco Type cigarettes Packs per Day 1 Cigarettes per Day 20 Years smoked 30 Smoking packs per day 1 OXYGEN HISTORY: Supplemental O2 At Rest 0 With Exertion 0 CPAP Can use home machine N/A BIPAP Can you home machine N/A Trilogy/AVAPS Can use home machine N/A DME/Compliance DME N/A Compliance N/A Activity Activity Level Normally very active. Able to mow lawn and shovel snow on her own. Respiratory Breath Sounds Breath Sounds Faint wheezing or rhonci, decreased sounds throughout Response Mild response,subjective improvement Pulse Rate <100 Respiratory Rate <18 Shortness of Breath On exertion Respiratory Therapy Score Total 4 Assessment and Plan RT Treatment Protocol Bronchodilator Aerosol Therapy Protocol,Lung Expansion Therapy Protocol,Bronchial Hygiene Therapy Protocol Note Pt scored 4 - Mild. Pt has hx of lung mass and COPD. RT will continue pt's home regimen of bronchodilator and Atrovent. RT will give and instruct pt with IS and Vibra-PEP acapella devices. We will reassess if needed.
[2024-05-28] MEDS: Furosemide 20 MG TAB PO (09:52)
[2024-05-28] MEDS: HYDROmorphone 2 MG/ML SYR 0.5 MG IVP (12:15)
--- NOTE | 2024-05-28 14:45 | DSE_ITS ---
Date of service: 05/28/24 Time of Service: 14:45 DS: Diagnosis Discharge Diagnosis (1) Lung nodules: Status: Acute (2) Hyponatremia: Status: Acute (3) Nicotine dependence: Status: Acute (4) COPD (chronic obstructive pulmonary disease): Status: Chronic (5) Chronic pain: Status: Chronic (6) Anxiety: Status: Chronic (7) DVT prophylaxis: Status: Acute Discharge Plan Disposition Patient Disposition: Transfer-Acute Inpatient Care Specific Acute Inpt Facility: [facility] Condition: Fair Discharge Details Reason For Visit: Lung Mass Admit Date/Time: 05/27/24 16:57 Admit Provider: Anirudh Carranza Attending Provider: Anirudh Carranza Primary Care Provider: Edwardo Valenzuela Hospital Course Hospital Course: Summary - Transfer to [facility] [place] History of Present Illness: * Chief Complaint: Chest pain, shortness of breath, and weakness starting 05/27/2024. * The patient, a 68-year-old female with a significant history of tobacco abuse, COPD, and migraine headaches, presents to the ED with worsening chest pain and shortness of breath, along with new-onset weakness. * Denies hemoptysis, calf pain, or swelling. * Actively smoking and reports recent weight loss. * Scheduled for a bronchoscopy at [facility] on 06/06/2023 but sought urgent care due to acute symptom onset. * Imaging: CTA chest revealed a central lung mass concerning for carcinoma, with compression of pulmonary structures and suspected liver metastasis. * Labs: Hyponatremia (122 mEq/L) and hypochloremia (87 mEq/L) noted in lab results.Patient was started on normal saline at 180 ml/h over night and sodium only increased by 1 point. That was stopped and lasix started. Repeat BMP pending. * SpO2: Stable at 94-95% on room air. * Plan: Per request of [facility] [facility] team; enoxaparin 30 mg sc started for DVT prophalaxis, azithromycin for potential pneumonia and was NPO until lunch time; she ate lunch and should be NPO after midnight. * Transfer to [facility] [place] for further evaluation, including potential bronchoscopy and stenting. Disposition: * Transfer Plan: The patient is being transferred to [facility] for further evaluation and management, including possible bronchoscopy and stenting. * Transport Arrangements: Pending, and patient is stable for transfer. * Patient Understanding: The patient has been informed of the transfer plan and agrees to the proposed management. Review of Systems: * All systems reviewed and unremarkable except as noted in HPI (chest pain, shortness of breath, weakness, recent weight loss). Past Medical, Surgical, and Family History: * Medical History: Chronic conditions include tobacco abuse, COPD, hepatitis C, chronic migraine, and anxiety. * Surgical History: History of cyst removal, tubal ligation, and laparoscopy. * Family History: * Mother had ALS, heart disease, and osteoporosis. * Father had cancer. Social History: * Smoking Status: Current (1/2 pack per day for 40 years, started at age 23). Home Medications: * Albuterol sulfate inhaler, ipratropium bromide inhaler, oxycodone 5 mg, jlhqvguelg-xknbgjkymnlay-sbadrjbz-codeine, among others. Physical Examination Findings: * General Appearance: Alert and oriented. * Vital Signs: Stable. * Respiratory: Diminished bilateral lung sounds. * Neurological: Fully alert and oriented, no respiratory distress. * Psychiatric: Anxious. Labs and Imaging: * Laboratory Results: * Hyponatremia (122 mEq/L), hypochloremia (87 mEq/L). * Mild elevation in AST (55) and alkaline phosphatase (197). * Imaging: * CTA chest revealed lung mass, possible liver metastasis, and right hilar mass causing compression. ED provider spoke wtih [facility] [place] pulmonology, Dr Glover @ 1615 05/27/24 - hospital medicine Dr Marsh accepts in transfer with interventional pulmonology consulting with a likely urgent bronc and possible stenting, recommend she start on DVT prophylaxis and be n.p.o. after midnight-they are listing for tomorrow This discharge summary details the patient?s transfer for continued management and evaluation at [facility] [place] with a focus on pulmonology and oncology concerns. Home Meds and New Rx's Prescriptions: Continued Atrovent HFA 17 mcg/actuation HFA aerosol inhaler See Rx Instructions inhalation DIRECTED Rx Instructions: inhaled as directed; gwiwpoexar-vrxovmgbom-nce-cod [id number] mg capsule 1 cap PO QID PRN oxycodone 5 mg tablet 5 mg PO BID PRN albuterol sulfate [Ventolin HFA] 90 mcg/actuation HFA aerosol inhaler See Rx Instructions inhalation DIRECTED Rx Instructions: inhaled as directed; Discharge Instructions Referrals: Edwarod Valenzuela MD [Primary Care Provider] - (1 week post hospitalization appointment for Lung CA new dx) Activity:: Activity as Tolerated Equipment/Supplies:: No Equipment Needed Diet:: As Tolerated Discharge Orders Discharge Orders: Discharge Order (Routine); Ordered 05/28/24 Ordered By: Nohelia Resendiz DS: Summary Time Spent with Patient providing and/or coordinating discharge services: Greater than 30 minutes Status at Discharge Functional status at discharge: independent ambulation Overall status at discharge: patient is not back to baseline Mental Status: mental status grossly normal Speech and Movement: speech and movement normal Mood: congruent mood Affect: normal affect Quality:SDOH Health Related Social Needs: Health related social needs problems related to housin g/economic circumstances (Z59.89) Exam Narrative Exam Narrative: General Appearance: Patient is alert and oriented Vital signs: Within normal limits. HEENT: Within normal limits. Respiratory: Diminished lung sounds are noted bilaterally. Gastrointestinal: No abdominal tenderness is present. Skin: Warm and dry, no rash. Neurological: Patient is fully alert and oriented, showing no signs of respiratory distress. Psychiatric: Patient is anxious. Psych Mental Status: mental status grossly normal Speech and Movement: speech and movement normal Mood: congruent mood Affect: normal affect DS: Data Vitals/I&O Vitals and I&O: Vital Signs Temperature 36.5 C 05/28/24 12:26 Temperature Source Temporal Artery Scan 05/28/24 12:26 Pulse 71 05/28/24 13:30 Pulse Rhythm Regular 05/27/24 20:30 Pulse 80 05/27/24 18:01 Respiratory Rate 19 05/28/24 12:26 Respiratory Effort Short of Breath 05/27/24 20:30 Respiratory Depth Normal 05/27/24 20:30 Respiratory Pattern Normal 05/27/24 20:30 Blood Pressure 145/79 H 05/28/24 12:26 Blood Pressure Mean 119 05/27/24 18:01 Blood Pressure Position Sitting 05/27/24 12:16 Pulse Oximetry 95 05/28/24 13:30 Oxygen Delivery Method Room Air 05/28/24 13:30 Oxygen Flow Rate 0 05/28/24 13:30 Pain Level 9 05/28/24 12:15 Comment admission VS documented on worklist 05/27/24 20:30 Intake & Output 05/27/24 05/28/24 05/28/24 23:59 11:59 23:59 Intake Total 270 / 270 2000 / 1999 Output Total 1050 / 1050 Balance 270 / 270 950 / 950 Weight 48.308 kg 51.3 kg Intake: IV 270 / 270 1999 Output: Urine 1050 / 1050 Other: Urine Color Yellow Yellow Urine Appearance Clear Clear Urine Odor None Normal Comment void x 1 unmeasurable, void into commode. Data Completed and Pending Labs on day of discharge: Labs from last 24 hours 05/28/24 05/27/24 05/27/24 06:38 19:13 17:04 WBC 5.19 RBC 4.54 Hgb 13.4 Hct 38.0 MCV 84 MCH 29.5 MCHC 35.3 RDW 12.3 Plt Count 172 MPV 9.1 Immature Gran % 0.4 Neutrophils % 62.2 Lymphocytes % 21.0 Monocytes % 14.1 Eosinophils % 1.3 Basophils % 1.0 Nucleated RBC % 0.0 Absolute Neutrophils 3.23 Absolute Lymphocytes 1.09 L Absolute Monocytes 0.73 Absolute Eosinophils 0.07 Absolute Basophils 0.05 Sodium 124 L* 123 L* Potassium 3.7 4.0 Chloride 93 L 89 L Carbon Dioxide 24.3 24.4 Anion Gap 6.7 9.6 BUN 9 11 Creatinine 0.5 L 0.5 L Est GFR (CKD-EPI 2020) 102.10 102.10 Glucose 92 107 H Calcium 8.1 L 8.9 Magnesium 1.7 L Troponin I COVID-19 Source Nasopharynx SARS-CoV-2 (PCR) Negative Influenza Type A (PCR) Negative Influenza Type B (PCR) Negative RSV (PCR) Negative 05/27/24 15:15 WBC RBC Hgb Hct MCV MCH MCHC RDW Plt Count MPV Immature Gran % Neutrophils % Lymphocytes % Monocytes % Eosinophils % Basophils % Nucleated RBC % Absolute Neutrophils Absolute Lymphocytes Absolute Monocytes Absolute Eosinophils Absolute Basophils Sodium Potassium Chloride Carbon Dioxide Anion Gap BUN Creatinine Est GFR (CKD-EPI 2020) Glucose Calcium Magnesium Troponin I 13 COVID-19 Source SARS-CoV-2 (PCR) Influenza Type A (PCR) Influenza Type B (PCR) RSV (PCR) PFSH All Active Problems (Updated 05/27/24 @ 19:29 by Nohelia Resendiz NP) DVT prophylaxis (Acute) Anxiety (Chronic) Hyponatremia (Acute) Sacroiliac inflammation (Acute) Osteopenia (Acute) Nicotine dependence (Acute) Neck pain (Acute) Migraine (Chronic) Malignant neoplasm of skin (Acute) Lyme disease (Acute) Lung nodules (Acute) Hypoglycemia (Acute) History of Lyme disease (Acute) History of chest pain (Acute) Exposure to lead (Acute) Disc disease, degenerative, lumbar or lumbosacral (Acute) Degeneration of cervical intervertebral disc (Acute) Chronic pain (Chronic) COPD (chronic obstructive pulmonary disease) (Chronic) Arthropathy (Acute) Medical History (Updated 05/27/24 @ 19:29 by Nohelia Resendiz NP) Medication monitoring encounter Hepatitis C carrier Chronic hepatitis C Allergic rhinitis Surgical History (Updated 01/11/24 @ 14:08 by Marilia Dove) Hx of removal of cyst H/O tubal ligation H/O laparoscopy 03/20/2002 Family History (Updated 01/11/24 @ 14:10 by Marilia Dove) Mother Amyotrophic lateral sclerosis Heart disease Hx of osteoporosis Father Cancer Social History (Updated 01/11/24 @ 14:17 by Marilia Dove) Smoking/Tobacco Use Status: Former Tobacco Use Quit Date: 04/07/24 Tobacco: How many years used: 30 Smoking risk assessment performed?: Yes Housing: house Additional Social history: 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 Time Spent with Patient Time Spent with Patient: 45-69 minutes Time was spent: preparing to see the patient(eg.review tests), ordering medications,tests, procedures, referring, communicating with other health healthcare recruiter, indepentently interpreting results, counseling the patient and care coordination
--- NOTE | 2024-05-28 15:31 | CHAPLAIN ---
Any was resting in bed when I visited. She shared that she is from [place]. She has COPD, then had pneumonia several months ago, recovered and then had COVID. She developed pneumonia again, but a misread scan prevented treatment, Any said. Now she is being told that she has a mass on her lung that may be cancerous and may have spread to other areas of her body. She is waiting for a bed at [facility] [place] so she can be transferred there for more testing. Waiting has been difficult, she said. Her daughter has been with her. She is the state match up person for the [facility]. Her son from [place] is arriving today. I explained my role, offered support and gave Any a prayer shawl.
[2024-05-28 16:34] LABS: Anion Gap 9.3 mmol/L (3-11); BUN 9 mg/dL (7-18); CO2 24.7 mmol/L (21.0-32.0); CREATININE 0.5 mg/dL (0.55-1.02); Calcium 8.5 mg/dL (8.5-10.1); Chloride 89 mmol/L (98-107); Glucose 124 mg/dL (74-106); Potassium 3.5 mmol/L (3.5-5.1)
[2024-05-28 16:36] LABS: Sodium 123 mmol/L (136-145)
--- NOTE | 2024-05-28 17:21 | NUR.NOTE ---
Spoke with Maya from [facility] for hand off report regarding pt transfer. Advised pt is AxO x 4 and able to make needs known. Pt is a 1 assist OOB to bedside commode and is continent of both bowel and bladder. Pt is being transfered for bronchoscopy and possible stent placement. Pt has not been NPO as she had lunch. Advised of critical sodium level of 123 reported by lab. Advised pt takes all pills whole and daughter has her 2 inhalers in her purse. Advised R expiratory wheeze and L dim upper lobes. Pt has #20 R Ac with nothing running. Nurse taking report verbalized understanding and all questions answered.
--- NOTE | 2024-05-28 17:51 | PDOC.CMPRO ---
Date of service: 05/28/24 Time of Service: 16:00 Care Management Progress Note Progress Note Text Progress Note Text: Any was admitted through the ED yesterday with c/o chest pain and shortness of breath. She was found to have a central lung mass and was transferred to [facility] late this afternoon for pulmonology consult with likely urgent bronchoscopy. Discharge Plan: Any was transferred to [facility] this afternoon via EMS for further w/u of her lung mass. She will f/u per their prescribed plan of care and f/u with her community providers Social Determinants of Health Screening Social Determinants of Health last assessed: 05/28/24 Will the Patient Participate in the Screening?: Yes Do you worry about having a steady place to live?: no Problems where you live: no known problems In the past 12 months, have you had to go without electric, gas, oil or water in your home?: no Have you or anyone in your house had to go without enough food to eat?: no Has lack of transportation kept you from medical appointments or from doing things needed for daily living?: no Has anyone in your life made you feel unsafe or unsupported?: yes How hard is it for you to pay for the very basics like food, housing, medical care, and heating? Would you say it is:: Somewhat hard Do you want help finding or keeping work or a job?: I do not need or want help If for any reason you need help with day-to-day activities such as bathing, preparing meals, shopping, managing finances, etc., do you get the help you need?: I get all the help I need How often do you feel lonely or isolated from those around you?: Never Do you speak a language other than [place]ian at home?: No Does the patient want assistance with any of the above?: No Health Related Social Needs Health related social needs: problems related to housing/economic circumstances (Z59.89)
== END 2024-05-28 16:34 | disposition short-term general hospital (02) ==
LOC: ER 17:07 → MS 18:20
PROVIDERS: Family Medicine; Physician Assistant; Admitting Provider Family Medicine; Emergency Provider Physician Assistant; PCP Family Medicine; Responsible Provider Nurse Practitioner Family; Visit Provider Family Medicine
DX: C34.01 Malignant neoplasm of right main bronchus (principal); E87.1 Hypo-osmolality and hyponatremia; F17.210 Nicotine dependence, cigarettes, uncomplicated; J44.9 Chronic obstructive pulmonary disease, unspecified; F41.9 Anxiety disorder, unspecified; G89.29 Other chronic pain; E27.8 Other specified disorders of adrenal gland; G43.909 Migraine, unspecified, not intractable, without status migrainosus; R07.89 Other chest pain; M51.379 Other intervertebral disc degeneration, lumbosacral region without mention of lumbar back pain or lower extremity pain; M50.30 Other cervical disc degeneration, unspecified cervical region; B18.2 Chronic viral hepatitis C
CPT/HCPCS: 00123; 36415; 71275; 74177; 80048; 80053; 83690; 87637; 93005; 94761; 96361; 96365; 96372; 96375; 96376; 99285; J1650; 81003; 81015; 83735; 83880; 84484; 85025; 93010; 94640; 99223; 99239; G0378; J0456; J1171; J2060; J2270; J7613; J7644

== ENCOUNTER 2024-06-17 01:37 | Outpatient (RCR) | payer MEDICARE, MEDICAID, SELFPAY ==
[2024-06-17] MEDS: Normal Saline Flush 10 ML SYR IVP (14:36)
[2024-06-17 14:57] LABS: Abs Immature Grans 0.01 10^3/uL (0.0-0.06); Absolute Basophil Count 0.02 10^3/uL (0.0-0.2); Absolute Eosinophil Count 0.01 10^3/uL (0.0-0.7); Absolute Lymphocyte Count 0.94 10^3/uL (1.2-3.4); Basophils % 1.3 %; Eosinophils % 0.7 %; HCT 34.1 % (36.0-46.0); HGB 11.5 g/dL (11.2-15.7); Immature Grans % 0.7 %; Lymphocytes % 61.8 %; MCH 29.8 pg (27.0-33.0); MCHC 33.7 % (32.0-36.0); MCV 88 fL (80-95); MPV 9.6 fL (8.0-11.0); Monocytes % 19.7 %; Neutrophils % 15.8 %; Platelet Count 169 10^3/uL (130-400); RBC 3.86 10^6/uL (3.93-5.22); RDW-SD 44.1 fL
[2024-06-17 15:07] LABS: Diff Comment Diff Reviewed; RBC Morphology Normal
[2024-06-17 15:09] LABS: Absolute Neutrophil Count 0.24 10^3/uL (1.2-6.7)
[2024-06-17 15:10] LABS: WBC 1.52 10^3/uL (4.4-10.8)
[2024-06-17 15:12] LABS: ALT 26 U/L (14-59); AST 21 U/L (15-37); Albumin 3.3 g/dL (3.4-5.0); Alkaline Phosphatase 198 U/L (46-116); Anion Gap 7.3 mmol/L (3-11); BUN 28 mg/dL (7-18); Bilirubin, Total 0.3 mg/dL (0.2-1.0); CO2 30.7 mmol/L (21.0-32.0); CREATININE 0.5 mg/dL (0.55-1.02); Calcium 8.9 mg/dL (8.5-10.1); Chloride 98 mmol/L (98-107); Glucose 104 mg/dL (74-106); Magnesium 1.9 mg/dL (1.8-2.4); Potassium 3.9 mmol/L (3.5-5.1); Sodium 136 mmol/L (136-145); Total Protein 6.7 g/dL (6.4-8.2)
== END 2024-06-17 23:59 | disposition home or self-care (01) ==
LOC: INF 01:37
PROVIDERS: PCP Family Medicine; Visit Provider Internal Medicine Medical Oncology
DX: C34.91 Malignant neoplasm of unspecified part of right bronchus or lung (principal)
CPT/HCPCS: 36591; 80053; 83735; 85025

== ENCOUNTER 2024-07-02 03:28 | Outpatient (RCR) | payer MEDICARE, MEDICAID, SELFPAY ==
[2024-06-25] MEDS: Normal Saline Flush 10 ML SYR IVP (08:20)
[2024-06-25 08:30] LABS: Abs Immature Grans 0.01 10^3/uL (0.0-0.06); Absolute Basophil Count 0.04 10^3/uL (0.0-0.2); Absolute Eosinophil Count 0.02 10^3/uL (0.0-0.7); Absolute Lymphocyte Count 1.14 10^3/uL (1.2-3.4); Absolute Monocyte Count 0.69 10^3/uL (0.1-0.8); Absolute Neutrophil Count 0.98 10^3/uL (1.2-6.7); Basophils % 1.4 %; Eosinophils % 0.7 %; HCT 36.5 % (36.0-46.0); HGB 12.5 g/dL (11.2-15.7); Immature Grans % 0.3 %; Lymphocytes % 39.6 %; MCH 30.2 pg (27.0-33.0); MCHC 34.2 % (32.0-36.0); MCV 88 fL (80-95); MPV 9.3 fL (8.0-11.0); Platelet Count 264 10^3/uL (130-400); RBC 4.14 10^6/uL (3.93-5.22); RDW 14.9 % (11.7-14.6); WBC 2.88 10^3/uL (4.4-10.8)
[2024-06-25 08:49] LABS: ALT 20 U/L (14-59); AST 20 U/L (15-37); Albumin 3.4 g/dL (3.4-5.0); Alkaline Phosphatase 203 U/L (46-116); Anion Gap 7.9 mmol/L (3-11); BUN 27 mg/dL (7-18); Bilirubin, Total 0.3 mg/dL (0.2-1.0); CO2 30.1 mmol/L (21.0-32.0); CREATININE 0.6 mg/dL (0.55-1.02); Calcium 9.2 mg/dL (8.5-10.1); Chloride 97 mmol/L (98-107); Estimated GFR 97.71 (mL/min/1.73m2); Glucose 109 mg/dL (74-106); Magnesium 1.9 mg/dL (1.8-2.4); Potassium 3.8 mmol/L (3.5-5.1); Sodium 135 mmol/L (136-145); Total Protein 6.7 g/dL (6.4-8.2)
[2024-06-25 09:07] LABS: Diff Comment Diff Reviewed; RBC Morphology Normal
[2024-07-02] MEDS: Normal Saline Flush 10 ML SYR IVP (07:45)
[2024-07-02 07:51] LABS: Abs Immature Grans 0.02 10^3/uL (0.0-0.06); Absolute Basophil Count 0.03 10^3/uL (0.0-0.2); Absolute Eosinophil Count 0.03 10^3/uL (0.0-0.7); Absolute Monocyte Count 0.72 10^3/uL (0.1-0.8); Basophils % 0.8 %; Eosinophils % 0.8 %; HCT 35.3 % (36.0-46.0); HGB 12.3 g/dL (11.2-15.7); Immature Grans % 0.5 %; Lymphocytes % 27.5 %; MCH 30.1 pg (27.0-33.0); MCHC 34.8 % (32.0-36.0); MCV 87 fL (80-95); MPV 9.3 fL (8.0-11.0); Neutrophils % 52.4 %; Platelet Count 187 10^3/uL (130-400); RBC 4.08 10^6/uL (3.93-5.22); RDW 14.5 % (11.7-14.6)
[2024-07-02 08:08] LABS: ALT 18 U/L (14-59); AST 22 U/L (15-37); Albumin 3.3 g/dL (3.4-5.0); Alkaline Phosphatase 192 U/L (46-116); Anion Gap 5.2 mmol/L (3-11); BUN 11 mg/dL (7-18); Bilirubin, Total 0.3 mg/dL (0.2-1.0); CO2 27.8 mmol/L (21.0-32.0); CREATININE 0.5 mg/dL (0.55-1.02); Calcium 8.8 mg/dL (8.5-10.1); Chloride 90 mmol/L (98-107); Glucose 103 mg/dL (74-106); Magnesium 1.7 mg/dL (1.8-2.4); Potassium 4.2 mmol/L (3.5-5.1); Total Protein 6.5 g/dL (6.4-8.2)
[2024-07-02 08:16] LABS: Sodium 123 mmol/L (136-145)
[2024-07-02 08:19] LABS: TSH 9.11 uIU/mL (0.36-3.74)
== END 2024-07-17 23:59 | disposition home or self-care (01) ==
LOC: INF 03:28
PROVIDERS: Nurse Practitioner Family; PCP Family Medicine; Visit Provider Internal Medicine Medical Oncology
DX: C34.91 Malignant neoplasm of unspecified part of right bronchus or lung (principal); Z79.899 Other long term (current) drug therapy
CPT/HCPCS: 36591; 80053; 83735; 84439; 84443; 85025

== ENCOUNTER 2024-07-25 13:59 | Emergency (ER) | payer MEDICARE, MEDICAID, SELFPAY ==
[2024-07-25] VITALS (9 sets, daily range): BP systolic 122–159; BP diastolic 67–97; PULSE 71–79; RESP 16–24; TEMP 36.6; O2SAT 96–99
--- NOTE | 2024-07-25 14:00 | RT.EKG_ITS ---
APPROVED REPORT Exam: Resting ECG Reason for Exam: Possible TIA Patient Location: E HR:75 bpm ECG Measurements Heart Rate 75 AXIS DC 143 P 84 QRSd 81 QRS 83 QT 387 T 72 QTc 434 Conclusion Sinus rhythm...normal P axis, V-rate 60- 99 No Occlusion SD
--- NOTE | 2024-07-25 14:03 | ED.GENADUL_ITS ---
Discharge Plan Disposition Patient Disposition: Against Medical Advice Discharge Details Clinical Impression: Transient ischemic attack (TIA) Primary Care Provider: Edwardo Valenzuela ED Provider: Rich Jiang Home Meds and New Rx's Prescriptions: New atorvastatin 40 mg tablet 40 mg PO DAILY Qty: 30 0RF Continued Atrovent HFA 17 mcg/actuation HFA aerosol inhaler See Rx Instructions inhalation DIRECTED Rx Instructions: inhaled as directed; moimcasbtw-pstjqxbwmj-bif-cod [id number] mg capsule 1 cap PO QID PRN oxycodone 5 mg tablet 5 mg PO BID PRN albuterol sulfate [Ventolin HFA] 90 mcg/actuation HFA aerosol inhaler See Rx Instructions inhalation DIRECTED Rx Instructions: inhaled as directed; lorazepam 1 mg tablet 1 mg PO PRN lidocaine-prilocaine 2.5-2.5 % cream 2.5 g topical PRN Discharge Instructions Instructions: Transient Ischemic Attack ED Additional Instructions: You are seen in the emergency department for your right facial weakness. There was concern that you have a stroke. The recommendation was for you to stay overnight in the hospital for monitoring. You declined. As we discussed if you develop worsening symptoms or have any other concerns please return to the emergency department. Otherwise please follow-up with your primary care provider next week. A prescription for a cholesterol medicine has been sent to your pharmacy. Please take as directed. HPI General Date/Time Provider Initiated Documentation: 07/25/24 14:02 . HPI Narrative: MDM This is an overall well-appearing normothermic and not tachycardic 68-year-old female with right-sided transient weakness currently neurologically intact the presentation concerning for TIA. Patient will undergo CT angiogram neck with neurological consult. I considered sepsis however patient's vitals were not consistent with sepsis. No pain or proportion to suggest necrotizing soft tissue infection. No chest pain to suggest ACS however will obtain ECG. Will also check for acute electrolyte abnormalities. I considered seizure however the patient had had no tongue biting no loss of bowel or bladder control. As result no indication for EEG. Might consider whether or not to obtain lumbar puncture however the patient was normothermic and not tachycardic and in no acute rigidity so I felt that the risks of lumbar puncture outweigh the benefits. 5 PM I did spoke with Dr. Álvaro owens CT from teleneurology who advised hospitalization following remainder of aspirin load, atorvastatin treatment and telemetry. Patient was adamant about declining an MRI. We discussed whether or not the patient could have had metastatic disease however given transient now resolved symptoms without seizures suspicion is low for metastatic disease so we will defer MRI. Advised that we do not have echo in house tomorrow and he felt that echo along with Zio patch would be appropriate for outpatient treatment. Will reach out to the hospitalist. 5:18 PM I met with the patient. She was with her daughter. I advised that recommendation was for hospitalization for telemetry. Patient declined MRI and she declined hospitalization. I advised her that there is a risk that she could have a stroke or permanent disability. She requested to leave. I advised her that she certainly could have had a TIA. 1. I explained the current situation and condition to the patient. 2. I explained the recommended treatment for this condition ?hospitalization for telemetry monitoring 3. I explained the risk of not having the recommended treatment ?worsening symptoms stroke permanent disability 4. The patient understands this information has no questions, and repeated back this information. 5. The patient states that they need to leave and will return for symptoms worsen 6. Mental status is lucid and the patient has decision-making capacity. 7. Patient is withdrawing her consent for care. HPI The patient presents to the emergency room for evaluation of right-sided numbness and facial drooping. She is accompanied by her daughter. She experienced an episode of unsteady gait approximately 10 minutes ago, which was transient in nature. This incident has raised concerns about a potential stroke. She reported sudden onset of numbness in her right arm and face, accompanied by difficulty in speech, which occurred while she was exiting a restaurant. These symptoms manifested approximately 15 minutes prior to her arrival at the emergency room. She self-administered two baby aspirins upon experiencing these symptoms. She reports no current symptoms. She also reports no history of stroke, tongue biting, or loss of bladder control. She attributes her current respiratory distress to stress. She reports no recent colds or fevers but admits to a persistent cough. She is currently on a regimen of 2 liters of oxygen at home. 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 She has completed her third chemotherapy session today without any immediate adverse effects. Exam General: Well-appearing in no acute distress speaking in complete sentences. Head: Normocephalic, atraumatic. Eye:[Pupils equal, round reactive to light.] Extraocular eye movements intact. No conjunctival injection. No scleral icterus. Ear, nose, mouth, throat: Grossly normal inspection. Normal voice, handling secretions normally. Neck: Trachea midline. Cardiovascular: Well-perfused distal extremities. Respiratory: Nonlabored respiration. Gastrointestinal: Nondistended abdomen. Musculoskeletal: No edema. Moving all 4 extremities spontaneously. Skin: Normal for age and race, grossly normal temperature and turgor. No acute rash. Neurologic: Alert and appropriate, no apparent acute deficits. GCS 15. 5 out of 5 bilateral upper and lower extremity. No dysmetria. Psychiatric: Mood and manner are appropriate. Grooming and personal hygiene are appropriate. Related Data Home Medications ?Medication ?Instructions ?Recorded ?Confirmed albuterol sulfate 90 mcg/actuation See Rx Instructions inhalation 01/11/24 07/25/24 aerosol inhaler (Ventolin HFA) DIRECTED butalbital 50 mg-acetaminophen 325 1 cap PO QID PRN 01/11/24 07/25/24 mg-caffeine 40 mg-codeine 30 mg cap ipratropium bromide 17 See Rx Instructions inhalation 01/11/24 07/25/24 mcg/actuation HFA aerosol inhaler DIRECTED (Atrovent HFA) oxycodone 5 mg tablet 5 mg PO BID PRN 01/11/24 07/25/24 atorvastatin 40 mg tablet 40 mg PO DAILY #30 tabs 07/25/24 lidocaine-prilocaine 2.5 %-2.5 % 2.5 g topical PRN 07/25/24 07/25/24 topical cream lorazepam 1 mg tablet 1 mg PO PRN 07/25/24 07/25/24 Previous Rx's ?Medication ?Instructions ?Recorded atorvastatin 40 mg tablet 40 mg PO DAILY #30 tabs 07/25/24 Allergies Allergy/AdvReac Type Severity Reaction Status Date / Time prednisone Allergy Unknown Unknown Verified 07/25/24 14:18 tetracycline Allergy Unknown Unknown Verified 07/25/24 14:18 insect venom AdvReac Unknown urticaria Verified 07/25/24 14:18 Penicillins AdvReac Unknown urticaria Verified 07/25/24 14:18 General ROBERT: 3 Medical Decision Making Quality:SDOH Health Related Social Needs: Health related social needs problems related to housin g/economic circumstances (Z59.89) PFSH All Active Problems (Updated 07/25/24 @ 17:15 by Rich Jiang MD) Transient ischemic attack (TIA) (Acute) Anxiety (Chronic) Hyponatremia (Acute) Sacroiliac inflammation (Acute) Osteopenia (Acute) Nicotine dependence (Acute) Neck pain (Acute) Migraine (Chronic) Malignant neoplasm of skin (Acute) Lyme disease (Acute) Lung nodules (Acute) Hypoglycemia (Acute) History of Lyme disease (Acute) History of chest pain (Acute) Exposure to lead (Acute) Disc disease, degenerative, lumbar or lumbosacral (Acute) Degeneration of cervical intervertebral disc (Acute) COPD (chronic obstructive pulmonary disease) (Chronic) Arthropathy (Acute) Medical History (Updated 07/25/24 @ 17:15 by Rich Jiang MD) Chronic pain Medication monitoring encounter Hepatitis C carrier Chronic hepatitis C Allergic rhinitis Surgical History (Updated 01/11/24 @ 14:08 by Marilia Dove) Hx of removal of cyst H/O tubal ligation H/O laparoscopy 03/20/2002 Family History (Updated 01/11/24 @ 14:10 by Marilia Dove) Mother Amyotrophic lateral sclerosis Heart disease Hx of osteoporosis Father Cancer Social History (Updated 01/11/24 @ 14:17 by Marilia Dove) Smoking/Tobacco Use Status: Former Tobacco Use Quit Date: 04/07/24 Tobacco: How many years used: 30 Smoking risk assessment performed?: Yes Alcohol Intake: former Substance use type: does not use Housing: house Additional Social history: 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
--- NOTE | 2024-07-25 14:15 | DI.RAD_ITS ---
Exam(s) XR CHEST 1V IN DI DEPT EXAM: XR CHEST 1V IN DI DEPT CLINICAL HISTORY: Transient right-sided weakness TECHNIQUE: 2D digital imaging was performed. COMPARISON: CT CT CHEST PE ABD PELVIS W from 05/27/2024 FINDINGS: There is a port over the right chest with tip in right atrium. LUNGS: Significant decrease in size of previously noted of right hilar mass. Mild streaky perihilar densities, greater inferiorly persist. Focal infiltrate. No pleural abnormality seen. HEART: Normal size. AORTA: Normal diameter. BONES: Unremarkable for age. Soft tissues: Unremarkable. IMPRESSION: No acute findings. Significant interval decrease in size of right hilar mass. DATA REPOSITORY: RADIATION DOSE DELIVERED:
[2024-07-25] MEDS: Normal Saline - Diluent 50 ML VIAL IJ (14:39)
[2024-07-25 14:42] LABS: Abs Immature Grans 0.01 10^3/uL (0.0-0.06); Absolute Basophil Count 0.01 10^3/uL (0.0-0.2); Absolute Lymphocyte Count 0.48 10^3/uL (1.2-3.4); Absolute Monocyte Count 0.19 10^3/uL (0.1-0.8); Absolute Neutrophil Count 3.75 10^3/uL (1.2-6.7); Basophils % 0.2 %; HCT 35.5 % (36.0-46.0); HGB 12.1 g/dL (11.2-15.7); Immature Grans % 0.2 %; Lymphocytes % 10.8 %; MCH 30.7 pg (27.0-33.0); MCHC 34.1 % (32.0-36.0); MCV 90 fL (80-95); MPV 9.2 fL (8.0-11.0); Monocytes % 4.3 %; Neutrophils % 84.5 %; Platelet Count 178 10^3/uL (130-400); RBC 3.94 10^6/uL (3.93-5.22); RDW 16.1 % (11.7-14.6); RDW-SD 53.1 fL; WBC 4.44 10^3/uL (4.4-10.8)
[2024-07-25] MEDS: Omnipaque 350 MG/ML 100 ML BTL 70 ML IJ (14:42)
--- NOTE | 2024-07-25 14:55 | DI.CT_ITS ---
Exam(s) CT BRAIN NECK CTA EXAM: CT BRAIN NECK CTA CLINICAL HISTORY: Transient right-sided weakness. TECHNIQUE: Imaging Protocol: Axial CT angiography was performed with multi-slice acquisition and mu lti-planar and MIP reconstructions. CONTRAST MATERIAL: Intravenous: Omnipaque 350 Contrast volume:100 ml COMPARISON: CT CT CHEST PE ABD PELVIS W from 05/27/2024 FINDINGS: CT Head W/O and W contrast: Ventricles and Extra axial spaces: Normal in size and morphology for the patient's age. Hemorrhage: None. Cerebral parenchyma: No evidence of acute infarct or mass. Midline shift: None. Brainstem/Cerebellum: No acute findings.. Calvarium: Normal. Visualized Paranasal sinuses/Mastoids: Clear. Soft Tissues: Unremarkable. Enhancement: Normal. Venous sinuses are patent. CTA Brain W: Internal Carotid Arteries: Scattered mild focal calcifications. Right: No aneurysm, occlusion or significant stenosis. Left: No aneurysm, occlusion or significant stenosis. Middle Cerebral Arteries: Right: No aneurysm, occlusion or significant stenosis. Left: No aneurysm, occlusion or significant stenosis. Anterior Cerebral Arteries: Right: No aneurysm, occlusion or significant stenosis. Left: No aneurysm, occlusion or significant stenosis. Posterior cerebral Arteries: Right: No aneurysm, occlusion or significant stenosis. Left: No aneurysm, occlusion or significant stenosis. Vertebral Arteries: Right: No aneurysm, occlusion or significant stenosis. Left: No aneurysm, occlusion or significant stenosis. Basilar Artery: No aneurysm, occlusion or significant stenosis. CTA Neck W: Common Carotid: Right: No dissection, occlusion or significant stenosis. Left: Mild calcific plaque at the common carotid bulb. No dissection, occlusion or significant steno sis. External Carotid: Right: No dissection, occlusion or significant stenosis. Left: No dissection, occlusion or significant stenosis. Internal Carotid: Right: No dissection, occlusion or significant stenosis. Left: No dissection, occlusion or significant stenosis. Vertebral Artery: Right: No dissection, occlusion or significant stenosis. Left: No dissection, occlusion or significant stenosis. Lung Apices: No acute findings. Emphysematous changes. Bones: multiple scattered sclerotic foci are seen in the cervical and upper thoracic spine, suspiciou s for metastatic disease. Soft Tissues: Normal. IMPRESSION: 1. CTA brain: Mild scattered calcification of the internal carotid arteries. No evidence of occlusio n, significant stenosis or aneurysm.. 2. Head CT: No acute abnormality. 3. CTA neck: Mild calcific plaque at the left common carotid bulb. No evidence of occlusion, signifi cant stenosis or dissection. RADIATION DOSE DELIVERED: Total DLP DATA REPOSITORY: All CT scans at this facility are submitted to the National Radiology Data Registry (NRDR) Dose Index Registry (DIR) with the [employer] (ACR). RADIATION OPTIMIZATION: All CT scans at this facility use at least one of these dose optimization te chniques: automated exposure control; mA and/or kV adjustment per patient size (includes targeted exa ms where dose is matched to clinical indication); or iterative reconstruction.
[2024-07-25 15:00] LABS: BUN 27 mg/dL (7-18); CREATININE 0.8 mg/dL (0.55-1.02); Calcium 8.4 mg/dL (8.5-10.1); Chloride 102 mmol/L (98-107); Estimated GFR 80.21 (mL/min/1.73m2); Glucose 188 mg/dL (74-106); Magnesium 1.7 mg/dL (1.8-2.4); Potassium 3.5 mmol/L (3.5-5.1); Sodium 138 mmol/L (136-145)
[2024-07-25 15:11] LABS: Troponin I < 4 ng/L (<or=51)
[2024-07-25 16:35] LABS: Troponin I < 4 ng/L (<or=51)
[2024-07-25] MEDS: Aspirin 81 MG CHEW 162 MG CH (17:40)
[2024-07-25] MEDS: Atorvastatin 40 MG TAB 80 MG PO (17:40)
[2024-07-25] MEDS: Heparin 500 UNITS/5 ML SYRINGE (18:27)
== END 2024-07-25 17:15 | disposition left against medical advice (07) ==
PROVIDERS: Emergency Provider Emergency Medicine; PCP Family Medicine
DX: G45.9 Transient cerebral ischemic attack, unspecified (principal); Z59.89 Other problems related to housing and economic circumstances
CPT/HCPCS: 99284; 99285; 36415; 70496; 70498; 80048; 93005; 71045; 83735; 84484; 85025; 93010; J1642; J3490

== ENCOUNTER 2024-08-13 02:00 | Outpatient (RCR) | payer MEDICARE, MEDICAID, SELFPAY ==
[2024-07-23] MEDS: Normal Saline Flush 10 ML SYR IVP (09:32)
[2024-07-23 10:19] LABS: Abs Immature Grans 0.01 10^3/uL (0.0-0.06); Absolute Basophil Count 0.02 10^3/uL (0.0-0.2); Absolute Eosinophil Count 0.04 10^3/uL (0.0-0.7); Absolute Monocyte Count 0.51 10^3/uL (0.1-0.8); Absolute Neutrophil Count 1.22 10^3/uL (1.2-6.7); Basophils % 0.7 %; Eosinophils % 1.5 %; HCT 38.3 % (36.0-46.0); HGB 13.3 g/dL (11.2-15.7); Immature Grans % 0.4 %; Lymphocytes % 33.3 %; MCH 30.9 pg (27.0-33.0); MCHC 34.7 % (32.0-36.0); MCV 89 fL (80-95); MPV 9.4 fL (8.0-11.0); Monocytes % 18.9 %; Neutrophils % 45.2 %; Platelet Count 206 10^3/uL (130-400); RBC 4.31 10^6/uL (3.93-5.22); RDW 15.9 % (11.7-14.6)
[2024-07-23 10:42] LABS: ALT 23 U/L (14-59); AST 22 U/L (15-37); Albumin 3.6 g/dL (3.4-5.0); Alkaline Phosphatase 155 U/L (46-116); Anion Gap 7.1 mmol/L (3-11); BUN 22 mg/dL (7-18); Bilirubin, Total 0.2 mg/dL (0.2-1.0); CO2 27.9 mmol/L (21.0-32.0); CREATININE 0.6 mg/dL (0.55-1.02); Calcium 8.7 mg/dL (8.5-10.1); Chloride 99 mmol/L (98-107); Estimated GFR 97.71 (mL/min/1.73m2); Glucose 116 mg/dL (74-106); Magnesium 2.1 mg/dL (1.8-2.4); Potassium 3.9 mmol/L (3.5-5.1); Sodium 134 mmol/L (136-145); Total Protein 6.8 g/dL (6.4-8.2)
[2024-07-23 11:03] LABS: FREE T4 0.78 ng/dL (0.76-1.46); TSH 11.99 uIU/mL (0.36-3.74)
[2024-08-13 10:02] LABS: Abs Immature Grans 0.03 10^3/uL (0.0-0.06); Absolute Basophil Count 0.04 10^3/uL (0.0-0.2); Absolute Eosinophil Count 0.02 10^3/uL (0.0-0.7); Absolute Lymphocyte Count 0.81 10^3/uL (1.2-3.4); Absolute Monocyte Count 0.71 10^3/uL (0.1-0.8); Absolute Neutrophil Count 2.84 10^3/uL (1.2-6.7); Basophils % 0.9 %; Eosinophils % 0.4 %; HCT 34.8 % (36.0-46.0); HGB 11.6 g/dL (11.2-15.7); Immature Grans % 0.7 %; Lymphocytes % 18.2 %; MCH 30.6 pg (27.0-33.0); MCHC 33.3 % (32.0-36.0); MCV 92 fL (80-95); MPV 9.3 fL (8.0-11.0); Neutrophils % 63.8 %; Platelet Count 334 10^3/uL (130-400); RBC 3.79 10^6/uL (3.93-5.22); RDW 16.3 % (11.7-14.6); RDW-SD 54.8 fL; WBC 4.45 10^3/uL (4.4-10.8)
[2024-08-13] MEDS: Normal Saline Flush 10 ML SYR IVP (10:25)
[2024-08-13 10:41] LABS: ALT 17 U/L (14-59); AST 13 U/L (15-37); Albumin 3.4 g/dL (3.4-5.0); Alkaline Phosphatase 160 U/L (46-116); Anion Gap 5.5 mmol/L (3-11); BUN 31 mg/dL (7-18); Bilirubin, Total 0.3 mg/dL (0.2-1.0); CO2 31.5 mmol/L (21.0-32.0); CREATININE 0.6 mg/dL (0.55-1.02); Chloride 101 mmol/L (98-107); Estimated GFR 97.71 (mL/min/1.73m2); FREE T4 1.04 ng/dL (0.76-1.46); Glucose 121 mg/dL (74-106); Potassium 3.6 mmol/L (3.5-5.1); Sodium 138 mmol/L (136-145); TSH 2.89 uIU/mL (0.36-3.74); Total Protein 6.9 g/dL (6.4-8.2)
== END 2024-08-17 23:59 | disposition home or self-care (01) ==
LOC: INF 02:00
PROVIDERS: Nurse Practitioner Family; PCP Family Medicine; Visit Provider Internal Medicine Medical Oncology
DX: C34.91 Malignant neoplasm of unspecified part of right bronchus or lung (principal); Z79.899 Other long term (current) drug therapy; Z45.2 Encounter for adjustment and management of vascular access device
CPT/HCPCS: 36591; 80053; 83735; 84439; 84443; 85025

== ENCOUNTER 2024-09-02 00:33 | Outpatient (RCR) | payer MEDICARE, MEDICAID, SELFPAY ==
[2024-08-27] MEDS: Normal Saline Flush 10 ML SYR IVP (10:08)
[2024-08-27 10:29] LABS: Abs Immature Grans 0.49 10^3/uL (0.0-0.06); Absolute Basophil Count 0.07 10^3/uL (0.0-0.2); Absolute Eosinophil Count 0.04 10^3/uL (0.0-0.7); Absolute Lymphocyte Count 1.51 10^3/uL (1.2-3.4); Absolute Monocyte Count 0.91 10^3/uL (0.1-0.8); Basophils % 0.5 %; Eosinophils % 0.3 %; HCT 35.2 % (36.0-46.0); HGB 11.7 g/dL (11.2-15.7); Immature Grans % 3.8 %; Lymphocytes % 11.6 %; MCH 31.4 pg (27.0-33.0); MCHC 33.2 % (32.0-36.0); MCV 94 fL (80-95); MPV 9.6 fL (8.0-11.0); Neutrophils % 76.8 %; Platelet Count 135 10^3/uL (130-400); RBC 3.73 10^6/uL (3.93-5.22); RDW 16.9 % (11.7-14.6); RDW-SD 58.4 fL; WBC 13.04 10^3/uL (4.4-10.8)
[2024-08-27 10:33] LABS: Absolute Neutrophil Count 10.01 10^3/uL (1.2-6.7)
[2024-08-27 10:53] LABS: ALT 20 U/L (14-59); AST 14 U/L (15-37); Albumin 3.6 g/dL (3.4-5.0); Alkaline Phosphatase 181 U/L (46-116); Anion Gap 7.3 mmol/L (3-11); BUN 11 mg/dL (7-18); Bilirubin, Total 0.2 mg/dL (0.2-1.0); CO2 29.7 mmol/L (21.0-32.0); CREATININE 0.5 mg/dL (0.55-1.02); Calcium 8.6 mg/dL (8.5-10.1); Chloride 104 mmol/L (98-107); Glucose 103 mg/dL (74-106); Potassium 4.3 mmol/L (3.5-5.1); Sodium 141 mmol/L (136-145); Total Protein 6.8 g/dL (6.4-8.2)
[2024-08-27 11:05] LABS: FREE T4 0.97 ng/dL (0.76-1.46); TSH 3.66 uIU/mL (0.36-3.74)
[2024-09-02] MEDS: Normal Saline Flush 10 ML SYR IVP (09:14)
[2024-09-02 09:16] LABS: Abs Immature Grans 0.02 10^3/uL (0.0-0.06); Absolute Basophil Count 0.04 10^3/uL (0.0-0.2); Absolute Eosinophil Count 0.02 10^3/uL (0.0-0.7); Absolute Lymphocyte Count 0.87 10^3/uL (1.2-3.4); Absolute Monocyte Count 0.57 10^3/uL (0.1-0.8); Absolute Neutrophil Count 3.39 10^3/uL (1.2-6.7); Basophils % 0.8 %; Eosinophils % 0.4 %; HCT 33.5 % (36.0-46.0); HGB 11.1 g/dL (11.2-15.7); Immature Grans % 0.4 %; Lymphocytes % 17.7 %; MCH 31.4 pg (27.0-33.0); MCHC 33.1 % (32.0-36.0); MCV 95 fL (80-95); Monocytes % 11.6 %; Neutrophils % 69.1 %; Platelet Count 186 10^3/uL (130-400); RBC 3.53 10^6/uL (3.93-5.22); RDW 16.5 % (11.7-14.6); RDW-SD 57.7 fL; WBC 4.91 10^3/uL (4.4-10.8)
[2024-09-02 09:35] LABS: ALT 15 U/L (14-59); AST 14 U/L (15-37); Albumin 3.4 g/dL (3.4-5.0); Alkaline Phosphatase 131 U/L (46-116); BUN 11 mg/dL (7-18); Bilirubin, Total 0.2 mg/dL (0.2-1.0); CREATININE 0.6 mg/dL (0.55-1.02); Calcium 8.5 mg/dL (8.5-10.1); Chloride 105 mmol/L (98-107); Estimated GFR 97.71 (mL/min/1.73m2); Glucose 121 mg/dL (74-106); Potassium 4.1 mmol/L (3.5-5.1); Sodium 141 mmol/L (136-145); Total Protein 6.2 g/dL (6.4-8.2)
[2024-09-02 09:57] LABS: FREE T4 0.96 ng/dL (0.76-1.46); TSH 3.33 uIU/mL (0.36-3.74)
== END 2024-09-16 23:59 | disposition home or self-care (01) ==
LOC: INF 00:33
PROVIDERS: Nurse Practitioner Family; PCP Family Medicine; Visit Provider Internal Medicine Medical Oncology
DX: C34.91 Malignant neoplasm of unspecified part of right bronchus or lung (principal); Z79.899 Other long term (current) drug therapy; Z45.2 Encounter for adjustment and management of vascular access device
CPT/HCPCS: 36591; 80053; 83735; 84439; 84443; 85025

== ENCOUNTER 2024-10-08 13:00 | Outpatient (RCR) | payer MEDICARE, MEDICAID, SELFPAY ==
[2024-10-01 12:19] LABS: Abs Immature Grans 0.01 10^3/uL (0.0-0.06); HCT 35.7 % (36.0-46.0); HGB 12.1 g/dL (11.2-15.7); Immature Grans % 0.2 %; MCH 31.6 pg (27.0-33.0); MCHC 33.9 % (32.0-36.0); MCV 93 fL (80-95); MPV 9.3 fL (8.0-11.0); Platelet Count 177 10^3/uL (130-400); RBC 3.83 10^6/uL (3.93-5.22); RDW 12.6 % (11.7-14.6); RDW-SD 43.4 fL; WBC 4.67 10^3/uL (4.4-10.8)
[2024-10-01] MEDS: Normal Saline Flush 10 ML SYR IVP (12:33)
[2024-10-01 12:45] LABS: ALT 16 U/L (14-59); AST 15 U/L (15-37); Albumin 3.5 g/dL (3.4-5.0); Alkaline Phosphatase 106 U/L (46-116); Anion Gap 6.7 mmol/L (3-11); BUN 13 mg/dL (7-18); Bilirubin, Total 0.3 mg/dL (0.2-1.0); CO2 30.3 mmol/L (21.0-32.0); Calcium 8.5 mg/dL (8.5-10.1); Chloride 99 mmol/L (98-107); Estimated GFR 102.10 (mL/min/1.73m2); Glucose 100 mg/dL (74-106); Magnesium 1.9 mg/dL (1.8-2.4); Potassium 4.2 mmol/L (3.5-5.1); Sodium 136 mmol/L (136-145); Total Protein 6.5 g/dL (6.4-8.2)
[2024-10-01 12:53] LABS: TSH 2.85 uIU/mL (0.36-3.74)
[2024-10-08] MEDS: Normal Saline Flush 10 ML SYR IVP (12:11)
[2024-10-08 12:45] LABS: ALT 18 U/L (14-59); AST 18 U/L (15-37); Albumin 3.5 g/dL (3.4-5.0); Alkaline Phosphatase 115 U/L (46-116); Anion Gap 6.0 mmol/L (3-11); BUN 9 mg/dL (7-18); Bilirubin, Total 0.3 mg/dL (0.2-1.0); CO2 28.0 mmol/L (21.0-32.0); Calcium 8.4 mg/dL (8.5-10.1); Chloride 99 mmol/L (98-107); Estimated GFR 107.74 (mL/min/1.73m2); Glucose 101 mg/dL (74-106); Potassium 4.1 mmol/L (3.5-5.1); Sodium 133 mmol/L (136-145); Total Protein 6.7 g/dL (6.4-8.2)
== END 2024-10-17 23:59 | disposition home or self-care (01) ==
LOC: INF 13:00
PROVIDERS: Nurse Practitioner Family; PCP Family Medicine; Visit Provider Internal Medicine Medical Oncology
DX: C34.91 Malignant neoplasm of unspecified part of right bronchus or lung (principal); R68.89 Other general symptoms and signs; Z79.899 Other long term (current) drug therapy; Z45.2 Encounter for adjustment and management of vascular access device
CPT/HCPCS: 36591; 80053; 83735; 84439; 84443; 85025; 86778

== ENCOUNTER 2024-10-28 03:58 | Outpatient (RCR) | payer MEDICARE, MEDICAID, SELFPAY ==
[2024-10-28 12:39] LABS: Abs Immature Grans 0.02 10^3/uL (0.0-0.06); HCT 34.2 % (36.0-46.0); HGB 11.7 g/dL (11.2-15.7); Immature Grans % 0.5 %; MCH 30.2 pg (27.0-33.0); MCHC 34.2 % (32.0-36.0); MCV 88 fL (80-95); MPV 9.0 fL (8.0-11.0); Platelet Count 301 10^3/uL (130-400); RBC 3.87 10^6/uL (3.93-5.22); RDW 11.9 % (11.7-14.6); RDW-SD 38.5 fL; WBC 4.04 10^3/uL (4.4-10.8)
[2024-10-28 13:08] LABS: ALT 8 U/L (14-59); AST 14 U/L (15-37); Albumin 2.7 g/dL (3.4-5.0); Alkaline Phosphatase 109 U/L (46-116); Anion Gap 7.6 mmol/L (3-11); BUN 7 mg/dL (7-18); Bilirubin, Total 0.2 mg/dL (0.2-1.0); CO2 26.4 mmol/L (21.0-32.0); Calcium 8.4 mg/dL (8.5-10.1); Chloride 97 mmol/L (98-107); Estimated GFR 107.74 (mL/min/1.73m2); Glucose 102 mg/dL (74-106); Magnesium 1.9 mg/dL (1.8-2.4); Potassium 4.1 mmol/L (3.5-5.1); Sodium 131 mmol/L (136-145); TSH 3.97 uIU/mL (0.36-3.74); Total Protein 6.3 g/dL (6.4-8.2)
[2024-10-28] MEDS: Normal Saline Flush 10 ML SYR IVP (13:26)
== END 2024-11-17 23:59 | disposition home or self-care (01) ==
LOC: INF 03:58
PROVIDERS: PCP Family Medicine; Visit Provider Internal Medicine Medical Oncology
DX: C34.91 Malignant neoplasm of unspecified part of right bronchus or lung (principal); Z79.899 Other long term (current) drug therapy; Z45.2 Encounter for adjustment and management of vascular access device
CPT/HCPCS: 36591; 80053; 83735; 84439; 84443; 85025

== ENCOUNTER 2024-11-30 18:47 | Emergency (ER) | payer MEDICARE, MEDICAID, SELFPAY ==
[2024-11-30 18:50] VITALS: BP 138/95; PULSE 82; RESP 20; TEMP 36.7; O2SAT 94
[2024-11-30 18:55] VITALS: BP 138/95; PULSE 82; RESP 20; TEMP 36.7; O2SAT 94
--- NOTE | 2024-11-30 19:36 | DI.RAD_ITS ---
Exam(s) XR PORTABLE CHEST AP EXAM: XR PORTABLE CHEST AP CLINICAL HISTORY: hemoptysis. TECHNIQUE: 2D digital imaging was performed. COMPARISON: CR XR CHEST 1V IN DI DEPT from 07/25/2024 FINDINGS: Single AP portable view. There is a right-sided Port-A-Cath. Its distal tip is in the upper right atrium, unchanged. Heart size is upper normal. The mediastinum is not widened. There is a right infrahilar density more evident than previous. Also increased interstitial markings in both lung blackburn. No Chata B lines. No pleural effusions. IMPRESSION: As above. Recommend follow-up contrast infused CT scan of the chest. DATA REPOSITORY: RADIATION DOSE DELIVERED:
[2024-11-30 20:14] LABS: Abs Immature Grans 0.01 10^3/uL (0.0-0.06); HCT 35.4 % (36.0-46.0); HGB 12.3 g/dL (11.2-15.7); Immature Grans % 0.2 %; MCH 30.0 pg (27.0-33.0); MCHC 34.7 % (32.0-36.0); MCV 86 fL (80-95); MPV 8.9 fL (8.0-11.0); Platelet Count 189 10^3/uL (130-400); RBC 4.10 10^6/uL (3.93-5.22); RDW 13.4 % (11.7-14.6); RDW-SD 42.6 fL; WBC 4.11 10^3/uL (4.4-10.8)
[2024-11-30 20:53] LABS: ALT 19 U/L (14-59); AST 16 U/L (15-37); Albumin 3.1 g/dL (3.4-5.0); Alkaline Phosphatase 76 U/L (46-116); Anion Gap 3.8 mmol/L (3-11); BUN 11 mg/dL (7-18); Bilirubin, Total 0.2 mg/dL (0.2-1.0); CO2 30.2 mmol/L (21.0-32.0); Calcium 8.0 mg/dL (8.5-10.1); Chloride 95 mmol/L (98-107); Estimated GFR 107.74 (mL/min/1.73m2); Glucose 110 mg/dL (74-106); Magnesium 1.6 mg/dL (1.8-2.4); NT-proBNP 139 pg/mL (<300); Potassium 3.7 mmol/L (3.5-5.1); Sodium 129 mmol/L (136-145); Total Protein 5.9 g/dL (6.4-8.2); Troponin I 5 ng/L (<or=51)
--- NOTE | 2024-11-30 21:05 | DI.VRAD_ITS ---
PROCEDURE INFORMATION: Exam: XR Chest Exam date and time: 11/30/2024 7:39 PM Age: 68 years old Clinical indication: Other: Hemoptysis TECHNIQUE: Imaging protocol: Radiologic exam of the chest. Views: 1 view. COMPARISON: CR XR CHEST 1V IN DI DEPT 07/25/2024 2:56 PM FINDINGS: Tubes, catheters and devices: Right Port-A-Cath redemonstrated. Lungs: There is diffuse interstitial prominence bilaterally. Pleural spaces: No pleural effusion or pneumothorax. Heart/Mediastinum: The heart is normal size. Bones/joints: Unremarkable. Other findings: There is right hilar fullness which appears new when compared with the prior plain film dated 07/25/2024. IMPRESSION: 1. New right hilar fullness when compared with the prior plain film from 07/25/2024. Differential considerations include hilar mass, pulmonary mass, or pulmonary consolidation. If further characterization is warranted, contrast-enhanced CT of the chest is recommended. 2. Diffuse interstitial pulmonary radiopacities suspicious for edema. Dictated and Authenticated by: Zuleika Guevara MD. Orderin Eli Boudreaux MD
[2024-11-30] MEDS: Normal Saline - Diluent 50 ML VIAL IJ (21:08)
[2024-11-30] MEDS: Normal Saline Flush 10 ML SYR IVP (21:09)
[2024-11-30] MEDS: Omnipaque 350 MG/ML 100 ML BTL IJ (21:09)
--- NOTE | 2024-11-30 21:21 | DI.CT_ITS ---
Exam(s) CT CHEST PE CTA EXAM: CT CHEST PE CTA CLINICAL HISTORY: hx of lung CA now w/ hemoptysis. TECHNIQUE: Imaging Protocol: CT angiography of the chest was performed using pulmonary embolus protocol. Multi planar reconstructions were performed. CONTRAST MATERIAL: Intravenous: Omnipaque 350 Contrast volume: 75 cc COMPARISON: CT CT CHEST PE ABD PELVIS W from 05/27/2024 FINDINGS: CHEST: PULMONARY ARTERIES: There are no intraluminal filling defects to suggest acute pulmonary emboli. LUNGS: Again noted is the previously described prominent right hilar mass which is again noted to encase the central right pulmonary arteries and occluded the right lower lobe mainstem bronchus.. The size of the mass is slightly further increased when compared to 05/27/2024 and there is also increased infiltrate in the right middle lobe, anteriorly. also further increase in some infiltrate in the right lower lobe. There are no pleural effusions. No new significant focal left lung findings and no left pleural effusion. MEDIASTINUM: Subcarinal adenopathy noted in continuity with the right hilar/infrahilar mass. There is no adenopathy in the anterior mediastinal fat. No supraclavicular adenopathy. No axillary adenopathy. Visualized thyroid unremarkable. CARDIAC: Heart size is upper normal. There is no pericardial effusion.Caliber of the thoracic aorta is within normal limits. No dissection. There is no significant shift of the interventricular septum. PARTIALLY VISUALIZED UPPERMOST ABDOMEN: No adrenal masses. OSSEOUS: No fractures. However, there has been significant increase in sclerotic osseous metastatic disease involving multiple hyperdense foci 8th in the vertebral bodies involving both anterior and posterior osseous elements. No pathologic fracture seen.. IMPRESSION: 1. Compared to the prior CT scan 05/27/2024 there is again noted a malignant appearing prominent right hilar-infrahilar mass.. Slight further increased in size. Also some increasing infiltrate in the right lung. Right lower lobe bronchus is again noted be occluded. There are no pleural effusions. 2. No evidence of pulmonary emboli. 3. There are now multiple sclerotic blastic metastases in the skeleton. No pathologic fractures evident. Preliminary virtual Radiology report was reviewed. RADIATION DOSE DELIVERED: 42.5mGy.cm Total DLP DATA REPOSITORY: All CT scans at this facility are submitted to the National Radiology Data Registry (NRDR) Dose Index Registry (DIR) with the [employer] (ACR). RADIATION OPTIMIZATION: All CT scans at this facility use at least one of these dose optimization techniques: automated exposure control; mA and/or kV adjustment per patient size (includes targeted exams where dose is matched to clinical indication); or iterative reconstruction.
--- NOTE | 2024-11-30 21:36 | DI.VRAD_ITS ---
PROCEDURE INFORMATION: Exam: CTA Chest With Contrast Exam date and time: 11/30/2024 9:14 PM Age: 68 years old Clinical indication: Other: HX of lung CA now w/ hemoptysis TECHNIQUE: Imaging protocol: Computed tomographic angiography of the chest with contrast. Exam focused on the arteries. 3D rendering (Not supervised by radiologist): MIP and/or 3D reconstructed images were created by the technologist. Contrast material: OMNIPAQUE 350; Contrast volume: 75 ml; Contrast route: INTRAVENOUS (IV); COMPARISON: CT CHEST PE ABD PELVIS W 05/27/2024 1:38 PM FINDINGS: Pulmonary arteries: No acute pulmonary embolus. Severe pulmonary arterial narrowing is present within the subsegmental right lower lobe pulmonary arteries. However, there is opacification of the distal subsegmental pulmonary arterial branches within the right lower lobe. Aorta: Atheromatous calcifications are present within the visualized thoracic aorta. Trachea: The trachea and the left airways are widely patent. Lungs: There is severe centrilobular emphysema with an apical predominance. Patchy airspace opacities are present at the posterior right apex. These have a similar appearance to the study dated 05/27/2024 suggesting pulmonary scarring or metastasis. The right hilar mass occludes the right lower lobe main bronchus. There is likely mucous plugging within the right lower lobe bronchi. Pleural spaces: Unremarkable. No pneumothorax. No pleural effusion. Heart: Heart is normal size. No pericardial effusion. Mediastinal space: The right hilar mass is redemonstrated. This measures approximately 4.8 x 4.2 cm on the current study. Lymph nodes: No enlarged lymph nodes. Gallbladder and biliary ducts: The gallbladder is unremarkable. No biliary ductal dilatation. Pancreas: The pancreas demonstrates normal size. No pancreatic ductal dilatation. Spleen: The spleen demonstrates normal size. Adrenal glands: The adrenal glands have a normal appearance. Bones/joints: Multiple subcentimeter sclerotic lesions are visualized throughout the spine. These are new when compared with the prior CT from 05/27/2024. Soft tissues: Unremarkable. IMPRESSION: 1. No pulmonary embolus. 2. Large right hilar mass redemonstrated. No findings to suggest arterial extravasation on this single-phase study. 3. Pulmonary arterial narrowing within the right lower lobe secondary to the large right hilar mass. 4. Multiple subcentimeter sclerotic lesions within the spine which are new when compared with the study from 05/27/2024 and suggest new bony metastasis. Dictated and Authenticated by: Zuleika Guevara MD. Orderin Eli Boudreaux MD
[2024-11-30 21:53] VITALS: BP 154/79; PULSE 74; RESP 18; TEMP 37.4; O2SAT 98
[2024-11-30] MEDS: Acetaminophen 500 MG TAB 1000 MG PO (22:06)
[2024-11-30] MEDS: Magnesium Gluconate 500 MG TAB PO (22:42)
--- NOTE | 2024-11-30 23:23 | W.ED.GENAD ---
Discharge Plan Disposition Patient Disposition: Home Discharge Details Clinical Impression: Hemoptysis, Hypomagnesemia, Hyponatremia Primary Care Provider: Edwardo Valenzuela ED Provider: Janusz Benitez Home Meds and New Rx's Prescriptions: No Action Atrovent HFA 17 mcg/actuation HFA aerosol inhaler See Rx Instructions inhalation DIRECTED Rx Instructions: inhaled as directed; suxbipmnnf-asktbrggyf-wne-cod [id number] mg capsule 1 cap PO QID PRN albuterol sulfate [Ventolin HFA] 90 mcg/actuation HFA aerosol inhaler See Rx Instructions inhalation DIRECTED Rx Instructions: inhaled as directed; calcium carb,glucon-vitamin D2 500 mg-5 mcg (200 unit) tablet 1 tab PO DAILY sertraline 50 mg tablet 50 mg PO DAILY arformoterol [Brovana] 15 mcg/2 mL solution for nebulization 15 mcg inhalation DAILY PRN nut.therapy,urea cycle disordr 15 gram-393 kcal/100 gram powder 1 pwd PO BID lorazepam 1 mg tablet 1 mg PO Q4H PRN oxycodone 5 mg tablet 10 mg PO Q4H PRN Discharge Instructions Instructions: Coughing up blood, Hyponatremia Additional Instructions: Please follow-up with your primary care provider regarding your visit to the emergency department today. Be sure to discuss results of all test performed here today to include radiology, and laboratory testing as well as results for any pending cultures. Should your symptoms worsen, or if you develop new concerning symptoms, please return immediately emergency department for further evaluation. HPI General Date/Time Provider Initiated Documentation: 11/30/24 18:51. HPI Narrative: MDM/Narrative: Initial Assessment: 68-year-old female with stage IV lung cancer presenting with hemoptysis. No fever or chills. History of hyponatremia and mini-stroke. Differential Diagnosis: Stage IV lung cancer likely cause of hemoptysis. CT scan to assess vascular involvement and tumor status. Pulmonary embolism considered due to hemoptysis. CT scan to rule out. Nasal dryness from oxygen therapy possibly contributing to nosebleeds. Coconut oil and saline recommended for nasal moisture. ED Course: Blood work and CT scan ordered. Provided saline for nasal application. ED course: Results reviewed, patient with mild hyponatremia for which she has sodium supplementation which she will take, as well as hypomagnesemia, will order p.o. repletion. CT shows no evidence of pulmonary embolism or significant arterial extravasation. Patient is stable for discharge and follow-up with oncology in 2 days. Disposition: Discharge home Patient Education: Coconut oil and saline for nasal dryness. This document was created with assistance from [employer]. The patient consented to its use. HPI: The patient is a 68-year-old female with a diagnosis of stage IV lung carcinoma, presenting with hemoptysis persisting for over one week. She reports the presence of bright red blood clots, with an increase in frequency recently. Epistaxis has resolved. The patient denies pyrexia or chills. She has been utilizing Ventolin (albuterol) and Atrovent (ipratropium) nebulizers, an inhaler, and supplemental oxygen therapy for the past two months. She reports nasal dryness and dyspnea associated with coughing, which ameliorates following expectoration of blood. There is no evidence of peripheral edema or a history of thromboembolic events. A port is in place for treatment due to poor venous access in the upper extremities. The patient has a history of hyponatremia and a transient ischemic attack, which were attributed to low serum sodium levels. ROS: Negative besides as mentioned above Exam: Vital signs: Reviewed. General Appearance: No acute distress. HEENT: NCAT, EOMI, not icteric. External ears normal. No rhinorrhea. Moist mucous membranes. Neck: Supple, full range of motion, no observable masses, No meningeal sign. Respiratory: Decreased breath sounds on the right, no wheezing or crackles. Cardiovascular: Regular heart sounds, no murmurs. Gastrointestinal: Soft, nondistended, No rebound tenderness. Back: No midline tenderness to palpation or palpable step-offs of the C/T/L spine. Musculoskeletal: No leg swelling, no joint deformities. Skin: Warm and dry, no rash. Neurological: Alert and oriented to person, place, and time. Psychiatric: Appropriate for situation. Labs: Laboratory Tests Range/Units 11/30/24 20:00 WBC (4.4-10.8) 10^3/uL 4.11 L RBC (3.93-5.22) 10^6/uL 4.10 Hgb (11.2-15.7) g/dL 12.3 Hct (36.0-46.0) % 35.4 L MCV (80-95) fL 86 MCH (27.0-33.0) pg 30.0 MCHC (32.0-36.0) % 34.7 RDW (11.7-14.6) % 13.4 Plt Count (130-400) 10^3/uL 189 MPV (8.0-11.0) fL 8.9 Immature Gran % % 0.2 Neutrophils % % 57.0 Lymphocytes % % 23.1 Monocytes % % 15.8 Eosinophils % % 3.2 Basophils % % 0.7 Nucleated RBC % (0.0-0.3) % 0.0 Absolute Neutrophils (1.2-6.7) 10^3/uL 2.34 Absolute Lymphocytes (1.2-3.4) 10^3/uL 0.95 L Absolute Monocytes (0.1-0.8) 10^3/uL 0.65 Absolute Eosinophils (0.0-0.7) 10^3/uL 0.13 Absolute Basophils (0.0-0.2) 10^3/uL 0.03 VBG Lactate (<or=2.0) mmol/L 0.8 Sodium (136-145) mmol/L 129 L Potassium (3.5-5.1) mmol/L 3.7 Chloride (98-107) mmol/L 95 L Carbon Dioxide (21.0-32.0) mmol/L 30.2 Anion Gap (3-11) mmol/L 3.8 BUN (7-18) mg/dL 11 Creatinine (0.55-1.02) mg/dL 0.4 L Est GFR (CKD-EPI 2020) (mL/min/1.73m2) 107.74 Glucose (74-106) mg/dL 110 H Calcium (8.5-10.1) mg/dL 8.0 L Magnesium (1.8-2.4) mg/dL 1.6 L Total Bilirubin (0.2-1.0) mg/dL 0.2 AST (15-37) U/L 16 ALT (14-59) U/L 19 Alkaline Phosphatase (46-116) U/L 76 Troponin I (<or=51) ng/L 5 NT-Pro-B Natriuret Pep (<300) pg/mL 139 Total Protein (6.4-8.2) g/dL 5.9 L Albumin (3.4-5.0) g/dL 3.1 L Radiology: PROCEDURE INFORMATION: Exam: XR Chest Exam date and time: 11/30/2024 7:39 PM Age: 68 years old Clinical indication: Other: Hemoptysis TECHNIQUE: Imaging protocol: Radiologic exam of the chest. Views: 1 view. COMPARISON: CR XR CHEST 1V IN DI DEPT 07/25/2024 2:56 PM FINDINGS: Tubes, catheters and devices: Right Port-A-Cath redemonstrated. Lungs: There is diffuse interstitial prominence bilaterally. Pleural spaces: No pleural effusion or pneumothorax. Heart/Mediastinum: The heart is normal size. Bones/joints: Unremarkable. Other findings: There is right hilar fullness which appears new when compared with the prior plain film dated 07/25/2024. IMPRESSION: 1. New right hilar fullness when compared with the prior plain film from 07/25/2024. Differential considerations include hilar mass, pulmonary mass, or pulmonary consolidation. If further characterization is warranted, contrast-enhanced CT of the chest is recommended. 2. Diffuse interstitial pulmonary radiopacities suspicious for edema. Thank you for allowing us to participate in the care of your patient. PROCEDURE INFORMATION: Exam: CTA Chest With Contrast Exam date and time: 11/30/2024 9:14 PM Age: 68 years old Clinical indication: Other: HX of lung CA now w/ hemoptysis TECHNIQUE: Imaging protocol: Computed tomographic angiography of the chest with contrast. Exam focused on the arteries. 3D rendering (Not supervised by radiologist): MIP and/or 3D reconstructed images were created by the technologist. Contrast material: OMNIPAQUE 350; Contrast volume: 75 ml; Contrast route: INTRAVENOUS (IV); COMPARISON: CT CHEST PE ABD PELVIS W 05/27/2024 1:38 PM FINDINGS: Pulmonary arteries: No acute pulmonary embolus. Severe pulmonary arterial narrowing is present within the subsegmental right lower lobe pulmonary arteries. However, there is opacification of the distal subsegmental pulmonary arterial branches within the right lower lobe. Aorta: Atheromatous calcifications are present within the visualized thoracic aorta. Trachea: The trachea and the left airways are widely patent. Lungs: There is severe centrilobular emphysema with an apical predominance. Patchy airspace opacities are present at the posterior right apex. These have a similar appearance to the study dated 05/27/2024 suggesting pulmonary scarring or metastasis. The right hilar mass occludes the right lower lobe main bronchus. There is likely mucous plugging within the right lower lobe bronchi. Pleural spaces: Unremarkable. No pneumothorax. No pleural effusion. Heart: Heart is normal size. No pericardial effusion. Mediastinal space: The right hilar mass is redemonstrated. This measures approximately 4.8 x 4.2 cm on the current study. DURGA MERA Preliminary Radiology Report SILVER BRAZER (QA) DISCREPANCY? If there is a discrepancy between the preliminary and final interpretation, please notify [facility] via [email or web address]. If you do not have access to our QA portal, call our QA team at [phone] CONFIDENTIALITY STATEMENT This report is intended only for the use of the referring physician, and only in accordance with law, If you received this in error, call [phone] Page 2 of 2 Lymph nodes: No enlarged lymph nodes. Gallbladder and biliary ducts: The gallbladder is unremarkable. No biliary ductal dilatation. Pancreas: The pancreas demonstrates normal size. No pancreatic ductal dilatation. Spleen: The spleen demonstrates normal size. Adrenal glands: The adrenal glands have a normal appearance. Bones/joints: Multiple subcentimeter sclerotic lesions are visualized throughout the spine. These are new when compared with the prior CT from 05/27/2024. Soft tissues: Unremarkable. IMPRESSION: 1. No pulmonary embolus. 2. Large right hilar mass redemonstrated. No findings to suggest arterial extravasation on this single-phase study. 3. Pulmonary arterial narrowing within the right lower lobe secondary to the large right hilar mass. 4. Multiple subcentimeter sclerotic lesions within the spine which are new when compared with the study from 05/27/2024 and suggest new bony metastasis. Thank you for allowing us to participate in the care of your patient. Related Data Home Medications ?Medication ?Instructions ?Recorded ?Confirmed albuterol sulfate 90 mcg/actuation See Rx Instructions inhalation 01/11/24 08/27/24 aerosol inhaler (Ventolin HFA) DIRECTED butalbital 50 mg-acetaminophen 325 1 cap PO QID PRN 01/11/24 08/27/24 mg-caffeine 40 mg-codeine 30 mg cap ipratropium bromide 17 See Rx Instructions inhalation 01/11/24 08/27/24 mcg/actuation HFA aerosol inhaler DIRECTED (Atrovent HFA) arformoterol 15 mcg/2 mL solution 15 mcg inhalation DAILY PRN 08/14/24 08/27/24 for nebulization (Brovana) calcium 500 mg (as 1 tab PO DAILY 08/14/24 08/27/24 carbonate,gluconate)-vit D2 5 mcg (200 unit) tablet nut.therapy,urea cycle disordr 15 1 pwd PO BID 08/14/24 08/27/24 gram-393 kcal/100 gram oral pwdr sertraline 50 mg tablet 50 mg PO DAILY 08/14/24 lorazepam 1 mg tablet 1 mg PO Q4H PRN 08/27/24 08/27/24 oxycodone 5 mg tablet 10 mg PO Q4H PRN 08/27/24 08/27/24 Allergies Allergy/AdvReac Type Severity Reaction Status Date / Time prednisone Allergy Unknown Unknown Verified 08/27/24 08:42 tetracycline Allergy Unknown Unknown Verified 08/27/24 08:42 insect venom AdvReac Unknown urticaria Verified 08/27/24 08:42 Penicillins AdvReac Unknown urticaria Verified 08/27/24 08:42 General Stated Complaint: [facility] ROBERT: 3 Course Vital Signs Vital signs: Vital Signs Temperature 36.7 C 11/30/24 18:50 Pulse 82 11/30/24 18:50 Respiratory Rate 20 11/30/24 18:50 Blood Pressure 138/95 H 11/30/24 18:50 Pulse Oximetry 94 11/30/24 18:50 Temperature 37.4 C 11/30/24 21:53 Pulse 74 11/30/24 21:53 Respiratory Rate 18 11/30/24 21:53 Blood Pressure 154/79 H 11/30/24 21:53 Blood Pressure Mean 104 11/30/24 21:53 Pulse Oximetry 98 11/30/24 21:53 Oxygen Delivery Method Nasal Cannula 11/30/24 21:53 Oxygen Flow Rate 3 11/30/24 21:53 Pain Level 4 11/30/24 22:12 Lab/Test Results Lab/Test Results: Laboratory Tests Range/Units 11/30/24 20:00 WBC (4.4-10.8) 10^3/uL 4.11 L RBC (3.93-5.22) 10^6/uL 4.10 Hgb (11.2-15.7) g/dL 12.3 Hct (36.0-46.0) % 35.4 L MCV (80-95) fL 86 MCH (27.0-33.0) pg 30.0 MCHC (32.0-36.0) % 34.7 RDW (11.7-14.6) % 13.4 Plt Count (130-400) 10^3/uL 189 MPV (8.0-11.0) fL 8.9 Immature Gran % % 0.2 Neutrophils % % 57.0 Lymphocytes % % 23.1 Monocytes % % 15.8 Eosinophils % % 3.2 Basophils % % 0.7 Nucleated RBC % (0.0-0.3) % 0.0 Absolute Neutrophils (1.2-6.7) 10^3/uL 2.34 Absolute Lymphocytes (1.2-3.4) 10^3/uL 0.95 L Absolute Monocytes (0.1-0.8) 10^3/uL 0.65 Absolute Eosinophils (0.0-0.7) 10^3/uL 0.13 Absolute Basophils (0.0-0.2) 10^3/uL 0.03 VBG Lactate (<or=2.0) mmol/L 0.8 Sodium (136-145) mmol/L 129 L Potassium (3.5-5.1) mmol/L 3.7 Chloride (98-107) mmol/L 95 L Carbon Dioxide (21.0-32.0) mmol/L 30.2 Anion Gap (3-11) mmol/L 3.8 BUN (7-18) mg/dL 11 Creatinine (0.55-1.02) mg/dL 0.4 L Est GFR (CKD-EPI 2020) (mL/min/1.73m2) 107.74 Glucose (74-106) mg/dL 110 H Calcium (8.5-10.1) mg/dL 8.0 L Magnesium (1.8-2.4) mg/dL 1.6 L Total Bilirubin (0.2-1.0) mg/dL 0.2 AST (15-37) U/L 16 ALT (14-59) U/L 19 Alkaline Phosphatase (46-116) U/L 76 Troponin I (<or=51) ng/L 5 NT-Pro-B Natriuret Pep (<300) pg/mL 139 Total Protein (6.4-8.2) g/dL 5.9 L Albumin (3.4-5.0) g/dL 3.1 L Medical Decision Making Quality:SDOH Health Related Social Needs: Health related social needs risk of homeless Health related social needs details no issues PFSH All Active Problems (Updated 11/30/24 @ 23:27 by Janusz Benitez MD) Hyponatremia (Acute) Hypomagnesemia (Acute) Hemoptysis (Acute) Advance care planning (Acute) Cancer related pain (Acute) Generalized anxiety disorder (Acute) Metastasis to bone (Acute) Metastasis to liver (Acute) 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) Anxiety (Chronic) Hyponatremia (Acute) Sacroiliac inflammation (Acute) Osteopenia (Acute) Nicotine dependence (Acute) Neck pain (Acute) Migraine (Chronic) Malignant neoplasm of skin (Acute) Lyme disease (Acute) Lung nodules (Acute) Hypoglycemia (Acute) History of Lyme disease (Acute) History of chest pain (Acute) Exposure to lead (Acute) Disc disease, degenerative, lumbar or lumbosacral (Acute) Degeneration of cervical intervertebral disc (Acute) COPD (chronic obstructive pulmonary disease) (Chronic) Arthropathy (Acute) Medical History (Updated 11/30/24 @ 23:27 by Janusz Benitez MD) Palliative care patient Neutropenia Chronic pain Medication monitoring encounter Hepatitis C carrier Chronic hepatitis C Allergic rhinitis Surgical History Hx of removal of cyst H/O tubal ligation H/O laparoscopy 03/20/2002 Family History Mother Amyotrophic lateral sclerosis Heart disease Hx of osteoporosis Father Cancer Social History Smoking/Tobacco Use Status: Former Tobacco Use Quit Date: 04/07/24 Tobacco: How many years used: 30 Smoking risk assessment performed?: Yes Alcohol Intake: former Substance use type: does not use Housing: house Additional Social history: 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
== END 2024-11-30 22:12 | disposition home or self-care (01) ==
PROVIDERS: Emergency Provider General Practice; PCP Family Medicine
DX: R04.2 Hemoptysis (principal); E83.42 Hypomagnesemia; E87.1 Hypo-osmolality and hyponatremia; C34.31 Malignant neoplasm of lower lobe, right bronchus or lung; C78.7 Secondary malignant neoplasm of liver and intrahepatic bile duct; C79.51 Secondary malignant neoplasm of bone; J44.9 Chronic obstructive pulmonary disease, unspecified; Z86.73 Personal history of transient ischemic attack (TIA), and cerebral infarction without residual deficits; Z87.891 Personal history of nicotine dependence
CPT/HCPCS: 71275; 80053; 99285; 71045; 83605; 83735; 83880; 84484; 85025; J3490

== ENCOUNTER 2024-12-11 07:14 | Outpatient (RCR) | payer MEDICARE, MEDICAID, SELFPAY ==
[2024-11-25] MEDS: Normal Saline Flush 10 ML SYR IVP ×2 (10:31→12:02)
[2024-11-25 10:37] LABS: Abs Immature Grans 0.01 10^3/uL (0.0-0.06); HCT 37.2 % (36.0-46.0); HGB 12.5 g/dL (11.2-15.7); Immature Grans % 0.2 %; MCH 29.6 pg (27.0-33.0); MCHC 33.6 % (32.0-36.0); MCV 88 fL (80-95); MPV 9.1 fL (8.0-11.0); Platelet Count 179 10^3/uL (130-400); RBC 4.22 10^6/uL (3.93-5.22); RDW 13.9 % (11.7-14.6); RDW-SD 44.9 fL; WBC 4.60 10^3/uL (4.4-10.8)
[2024-11-25 11:09] LABS: ALT 23 U/L (14-59); AST 21 U/L (15-37); Albumin 3.4 g/dL (3.4-5.0); Alkaline Phosphatase 54 U/L (46-116); Anion Gap 5.1 mmol/L (3-11); BUN 8 mg/dL (7-18); Bilirubin, Total 0.2 mg/dL (0.2-1.0); CO2 30.9 mmol/L (21.0-32.0); Calcium 8.8 mg/dL (8.5-10.1); Chloride 93 mmol/L (98-107); Estimated GFR 102.10 (mL/min/1.73m2); Glucose 121 mg/dL (74-106); Magnesium 1.6 mg/dL (1.8-2.4); Potassium 3.6 mmol/L (3.5-5.1); Sodium 129 mmol/L (136-145); TSH 7.06 uIU/mL (0.36-3.74); Total Protein 6.1 g/dL (6.4-8.2)
[2024-12-02] MEDS: Normal Saline Flush 10 ML SYR IVP (09:55)
[2024-12-02 09:59] LABS: Abs Immature Grans 0.01 10^3/uL (0.0-0.06); HCT 35.7 % (36.0-46.0); HGB 12.1 g/dL (11.2-15.7); Immature Grans % 0.4 %; MCH 29.3 pg (27.0-33.0); MCHC 33.9 % (32.0-36.0); MCV 86 fL (80-95); MPV 8.8 fL (8.0-11.0); Platelet Count 181 10^3/uL (130-400); RBC 4.13 10^6/uL (3.93-5.22); RDW 13.8 % (11.7-14.6); RDW-SD 43.7 fL; WBC 2.84 10^3/uL (4.4-10.8)
[2024-12-02 10:19] LABS: ALT 16 U/L (14-59); AST 15 U/L (15-37); Albumin 3.3 g/dL (3.4-5.0); Alkaline Phosphatase 74 U/L (46-116); Anion Gap 6.2 mmol/L (3-11); BUN 14 mg/dL (7-18); Bilirubin, Total 0.2 mg/dL (0.2-1.0); CO2 27.8 mmol/L (21.0-32.0); Calcium 8.2 mg/dL (8.5-10.1); Chloride 95 mmol/L (98-107); Estimated GFR 107.74 (mL/min/1.73m2); Glucose 139 mg/dL (74-106); Magnesium 1.7 mg/dL (1.8-2.4); Potassium 3.7 mmol/L (3.5-5.1); Sodium 129 mmol/L (136-145); Total Protein 6.1 g/dL (6.4-8.2)
[2024-12-02 10:43] LABS: TSH 4.37 uIU/mL (0.36-3.74)
[2024-12-11] MEDS: Normal Saline Flush 10 ML SYR IVP (14:13)
[2024-12-11 14:38] LABS: Abs Immature Grans 0.01 10^3/uL (0.0-0.06); HCT 36.5 % (36.0-46.0); HGB 12.5 g/dL (11.2-15.7); Immature Grans % 0.3 %; MCH 29.0 pg (27.0-33.0); MCHC 34.2 % (32.0-36.0); MCV 85 fL (80-95); MPV 8.8 fL (8.0-11.0); Platelet Count 225 10^3/uL (130-400); RBC 4.31 10^6/uL (3.93-5.22); RDW 13.7 % (11.7-14.6); RDW-SD 42.6 fL; WBC 3.17 10^3/uL (4.4-10.8)
[2024-12-11 14:46] LABS: ALT 16 U/L (14-59); AST 13 U/L (15-37); Albumin 3.6 g/dL (3.4-5.0); Alkaline Phosphatase 65 U/L (46-116); Anion Gap 7.4 mmol/L (3-11); BUN 7 mg/dL (7-18); Bilirubin, Total 0.3 mg/dL (0.2-1.0); CO2 28.6 mmol/L (21.0-32.0); Calcium 8.5 mg/dL (8.5-10.1); Chloride 92 mmol/L (98-107); Estimated GFR 101.46 (mL/min/1.73m2); Glucose 113 mg/dL (74-106); Magnesium 1.8 mg/dL (1.8-2.4); Potassium 4.0 mmol/L (3.5-5.1); Sodium 128 mmol/L (136-145); TSH 5.40 uIU/mL (0.36-3.74); Total Protein 6.4 g/dL (6.4-8.2)
== END 2024-12-17 23:59 | disposition home or self-care (01) ==
LOC: INF 07:14
PROVIDERS: Nurse Practitioner Family; PCP Family Medicine; Visit Provider Internal Medicine Medical Oncology
DX: C34.91 Malignant neoplasm of unspecified part of right bronchus or lung (principal); Z79.899 Other long term (current) drug therapy; Z45.2 Encounter for adjustment and management of vascular access device
CPT/HCPCS: 36591; 80053; 83735; 84439; 84443; 85025

== ENCOUNTER 2024-12-11 17:41 | Emergency (ER) | payer MEDICARE, MEDICAID, SELFPAY ==
--- NOTE | 2024-12-11 17:30 | RT.EKG_ITS ---
APPROVED REPORT Exam: Resting ECG Reason for Exam: Shortness of breathe Patient Location: E HR:77 bpm ECG Measurements Heart Rate 77 AXIS RI 144 P 72 QRSd 93 QRS 76 QT 403 T 62 QTc 457 Conclusion Sinus rhythm...normal P axis, V-rate 60- 99 No Occlusion [place]
[2024-12-11 17:43] VITALS: BP 151/71; PULSE 84; RESP 18; TEMP 36.4; O2SAT 94
--- NOTE | 2024-12-11 17:43 | W.ED.GENAD ---
Discharge Plan Disposition Patient Disposition: Home Discharge Details Clinical Impression: Breath shortness, Chronic hypoxemic respiratory failure Primary Care Provider: Edwardo Valenzuela ED Provider: Rich Jiang Home Meds and New Rx's Prescriptions: New doxycycline hyclate 100 mg capsule 100 mg PO BID Qty: 10 0RF Continued Atrovent HFA 17 mcg/actuation HFA aerosol inhaler See Rx Instructions inhalation DIRECTED Rx Instructions: inhaled as directed; nscrpyksbz-eqjhjmrviz-dqq-cod [id number] mg capsule 1 cap PO QID PRN albuterol sulfate [Ventolin HFA] 90 mcg/actuation HFA aerosol inhaler See Rx Instructions inhalation DIRECTED Rx Instructions: inhaled as directed; calcium carb,glucon-vitamin D2 500 mg-5 mcg (200 unit) tablet 1 tab PO DAILY sertraline 50 mg tablet 50 mg PO DAILY arformoterol [Brovana] 15 mcg/2 mL solution for nebulization 15 mcg inhalation DAILY PRN lorazepam 1 mg tablet 1 mg PO Q4H PRN oxycodone 5 mg tablet 10 mg PO Q4H PRN Discharge Instructions Instructions: Shortness of breath Additional Instructions: You are seen in the emergency department for shortness of breath. Your CAT scan showed no sign of pneumatosis. There was no sign of a blood clot in your lungs nor pneumonia. Please return to the emergency department if you develop worsening shortness of breath or have any other concerns. Please take antibiotics as directed. As we discussed if you develop fevers or worsening shortness of breath please return to the emergency department. HPI General Date/Time Provider Initiated Documentation: 12/11/24 17:43. HPI Narrative: MDM This is an overall quite well-appearing normothermic and not tachycardic 69-year-old oxygen dependent female with history of metastatic lung cancer recent initiation on chemotherapy concerning for possibility of pneumonitis versus progression of known pulmonary malignancy for which patient will undergo CT scan. PE is certainly on the differential so we will complete a PE study. ACS is also on the differential so we will obtain 2 sets of troponins. ECG showing narrow complex normal sinus rhythm at a rate of 73. No ST segment abnormalities. T wave flattening in aVL. No acute injury pattern. I considered sepsis however the patient denies fevers and has reassuring vital signs I did not feel that she required broad-spectrum antibiotics nor blood cultures nor lactate. She does have some wheezes though she does not feel that she has had more purulent sputum and this does not feel like prior episodes of COPD exacerbations. Will reassess following CT scan and consider doxycycline. No significant cough to suggest pneumonia. Given shortness of breath will swab for COVID influenza and RSV. She had labs performed earlier today showing she has no anemic so my suspicion for symptomatic anemia is low. She has had no black or bloody stools to suggest GI bleed. No falls to suggest pneumothorax. I offered patient a nebulization treatment but she declined. 9:03 PM Basic metabolic panel showing no BOBBY. Mild hyponatremia improved compared to prior. Patient had 2 reassuring negative troponins. Her CBC showed leukopenia similar to incite improvement to prior. No anemia. No thrombocytopenia. Her CT scan showed no signs of pneumatosis. No signs of PE. It certainly may be possible that patient is developing a component of pulmonary hypertension secondary to her lung mass and her chronic oxygen dependence. She may benefit from an outpatient echocardiogram. Given that she is not hypoxic I do not feel she requires hospitalization. She is not volume overloaded to suggest benefit from diuresis. Patient and her daughter and I discussed that she had a reassuring evaluation in the ED. In the event that there is a component of a COPD exacerbation I treated her with doxycycline and dexamethasone given allergy to prednisone. We discussed that she should return if she develop fevers any increasing weakness or shortness of breath. She understood her return indications and was discharged with empiric trial of expectant outpatient management. I did advised PCP follow-up next week. She is on outpatient element for her hyponatremia. It may be possible that her dyspnea is secondary to lurbinectedin as this is a documented side effect. Given that she was not altered I did not feel she required hospitalization for her mild hyponatremia which is chronic appearing. HPI This is a patient with a history of cancer presenting with shortness of breath. The patient reports experiencing shortness of breath for the past few days, which she attributes to her ongoing chemotherapy treatment. She is currently on her second round of chemotherapy and is 8 days into the first session of a new treatment regimen. She reports no fever but did experience nausea upon waking up yesterday morning, which has since subsided. She quit smoking prior to her cancer diagnosis. She experiences chest pain when taking deep breaths, which she believes is due to a growing tumor. The tumor had previously shrunk significantly with the first round of chemotherapy but has since regrown rapidly. She was previously on 2 liters of oxygen, but this was increased to 3 liters following her pneumonitis diagnosis. A CT scan with contrast revealed inflammation in her lungs. She was prescribed Udenyca injections to boost her immune system, which she believes led to lung strain and subsequent pneumonitis. She recalls an episode of coughing up blood in 10/2024, which she initially dismissed as a side effect of her treatment. However, the condition worsened, leading to a diagnosis of pneumonitis. She takes lurbinectedin for her small cell lung cancer. Exam General: Well-appearing in no acute distress speaking in complete sentences. No respiratory distress. Head: Normocephalic, atraumatic. Eye: Extraocular eye movements intact. No conjunctival injection. No scleral icterus. Ear, nose, mouth, throat: Grossly normal inspection. Normal voice, handling secretions normally. Neck: Trachea midline. Cardiovascular: Well-perfused distal extremities. Regular rate and rhythm. Respiratory: Nonlabored respiration. Bilateral wheezes. Gastrointestinal: Nondistended abdomen. Musculoskeletal: No edema. Moving all 4 extremities spontaneously. Skin: Normal for age and race, grossly normal temperature and turgor. No acute rash. Neurologic: Alert and appropriate, no apparent acute deficits. Psychiatric: Mood and manner are appropriate. Grooming and personal hygiene are appropriate. Related Data Home Medications ?Medication ?Instructions ?Recorded ?Confirmed albuterol sulfate 90 mcg/actuation See Rx Instructions inhalation 01/11/24 12/11/24 aerosol inhaler (Ventolin HFA) DIRECTED butalbital 50 mg-acetaminophen 325 1 cap PO QID PRN 01/11/24 12/11/24 mg-caffeine 40 mg-codeine 30 mg cap ipratropium bromide 17 See Rx Instructions inhalation 01/11/24 12/11/24 mcg/actuation HFA aerosol inhaler DIRECTED (Atrovent HFA) arformoterol 15 mcg/2 mL solution 15 mcg inhalation DAILY PRN 08/14/24 12/11/24 for nebulization (Brovana) calcium 500 mg (as 1 tab PO DAILY 08/14/24 12/11/24 carbonate,gluconate)-vit D2 5 mcg (200 unit) tablet sertraline 50 mg tablet 50 mg PO DAILY 08/14/24 12/11/24 lorazepam 1 mg tablet 1 mg PO Q4H PRN 08/27/24 12/11/24 oxycodone 5 mg tablet 10 mg PO Q4H PRN 08/27/24 12/11/24 doxycycline hyclate 100 mg capsule 100 mg PO BID #10 caps 12/11/24 Previous Rx's ?Medication ?Instructions ?Recorded doxycycline hyclate 100 mg capsule 100 mg PO BID #10 caps 12/11/24 Allergies Allergy/AdvReac Type Severity Reaction Status Date / Time prednisone Allergy Unknown Unknown Verified 12/11/24 17:46 tetracycline Allergy Unknown Unknown Verified 12/11/24 17:46 insect venom AdvReac Unknown urticaria Verified 12/11/24 17:46 Penicillins AdvReac Unknown urticaria Verified 12/11/24 17:46 General ROBERT: 3 Medical Decision Making Quality:SDOH Health Related Social Needs: Health related social needs risk of homeless Health related social needs details no issues PFSH All Active Problems (Updated 12/11/24 @ 21:10 by Rich Jiang MD) Chronic hypoxemic respiratory failure (Acute) Breath shortness (Acute) Hyponatremia (Acute) Hypomagnesemia (Acute) Hemoptysis (Acute) Advance care planning (Acute) Cancer related pain (Acute) Generalized anxiety disorder (Acute) Metastasis to bone (Acute) Metastasis to liver (Acute) 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) Anxiety (Chronic) Hyponatremia (Acute) Sacroiliac inflammation (Acute) Osteopenia (Acute) Nicotine dependence (Acute) Neck pain (Acute) Migraine (Chronic) Malignant neoplasm of skin (Acute) Lyme disease (Acute) Lung nodules (Acute) Hypoglycemia (Acute) History of Lyme disease (Acute) History of chest pain (Acute) Exposure to lead (Acute) Disc disease, degenerative, lumbar or lumbosacral (Acute) Degeneration of cervical intervertebral disc (Acute) COPD (chronic obstructive pulmonary disease) (Chronic) Arthropathy (Acute) Medical History (Updated 12/11/24 @ 21:10 by Rich Jiang MD) Palliative care patient Neutropenia Chronic pain Medication monitoring encounter Hepatitis C carrier Chronic hepatitis C Allergic rhinitis Surgical History Hx of removal of cyst H/O tubal ligation H/O laparoscopy 03/20/2002 Family History Mother Amyotrophic lateral sclerosis Heart disease Hx of osteoporosis Father Cancer Social History Smoking/Tobacco Use Status: Former Tobacco Use Quit Date: 04/07/24 Tobacco: How many years used: 30 Smoking risk assessment performed?: Yes Alcohol Intake: former Substance use type: does not use and sedatives Housing: house Additional Social history: Current [employer].1/2ppd 40yrs.Comments started age 23 2ppd on average
--- NOTE | 2024-12-11 17:45 | DI.CT_ITS ---
Exam(s) CT CHEST PE CTA EXAM: CT CHEST PE CTA CLINICAL HISTORY: Shortness of breath. TECHNIQUE: Imaging Protocol: Axial CT angiography was performed with multi- slice acquisition and multi-planar reconstructions as well as axial, coronal and sagittal MIP reconstructions. Computer aided detection (CAD) was utilized. CONTRAST MATERIAL: Intravenous: Omnipaque 350 Contrast volume:60 ml COMPARISON: CT CT CHEST PE ABD PELVIS W from 05/27/2024 CR,XR XR PORTABLE CHEST AP from 11/30/2024 FINDINGS: Pulmonary Arteries: No evidence of filling defect to suggest pulmonary emboli. There is some attenuation of right pulmonary artery branches by large perihilar mass. Mediastinum and Carolyn: Right perihilar mass again noted extending into hilar region. Pulmonary parenchyma: Large right perihilar mass is again noted measuring roughly 4 cm. This causes some vascular encasement as well as occlusion of bronchi. Mild improvement of previously noted opacities in the right lung apex. Mild interval improvement in opacities posteriorly at the right lung base. Areas of nodularity also present in the right lower lobe. Underlying emphysematous changes. Pleura: No effusion or pneumothorax. Heart: The heart is not dilated. Moderate coronary artery calcifications are seen. Aorta: Thoracic aorta non-dilated. No dissection. Upper abdomen: No acute findings. Bones: There are multiple sclerotic foci noted throughout the thoracic spine, sternum and lower cervical spine. These have worsened when compared with the previous exam. Stable mild compression fractures of T11 and T12. Tubes, Catheters, and Lines: Right internal jugular port. Soft tissues: Unremarkable. IMPRESSION: No evidence of pulmonary embolism. Mild interval decrease size right large right perihilar mass. Some improvement in right upper and lower lobe opacities. Interval worsening of bony metastases. The preliminary [facility] report was reviewed. RADIATION DOSE DELIVERED: 96.7mGy.cm Total DLP DATA REPOSITORY: All CT scans at this facility are submitted to the National Radiology Data Registry (NRDR) Dose Index Registry (DIR) with the [employer] (ACR). RADIATION OPTIMIZATION: All CT scans at this facility use at least one of these dose optimization techniques: automated exposure control; mA and/or kV adjustment per patient size (includes targeted exams where dose is matched to clinical indication); or iterative reconstruction.
[2024-12-11 18:31] VITALS: RESP 22
[2024-12-11 18:41] LABS: Abs Immature Grans 0.01 10^3/uL (0.0-0.06); HCT 35.2 % (36.0-46.0); HGB 12.1 g/dL (11.2-15.7); Immature Grans % 0.3 %; MCH 29.0 pg (27.0-33.0); MCHC 34.4 % (32.0-36.0); MCV 84 fL (80-95); MPV 8.5 fL (8.0-11.0); Platelet Count 219 10^3/uL (130-400); RBC 4.17 10^6/uL (3.93-5.22); RDW 13.9 % (11.7-14.6); RDW-SD 43.0 fL; WBC 3.35 10^3/uL (4.4-10.8)
[2024-12-11] MEDS: Normal Saline - Diluent 50 ML VIAL IJ (18:43)
[2024-12-11] MEDS: Normal Saline Flush 10 ML SYR IVP (18:43)
[2024-12-11] MEDS: Omnipaque 350 MG/ML 100 ML BTL IJ (18:44)
[2024-12-11 18:51] LABS: Anion Gap 6.1 mmol/L (3-11); BUN 7 mg/dL (7-18); CO2 28.9 mmol/L (21.0-32.0); Calcium 8.6 mg/dL (8.5-10.1); Chloride 94 mmol/L (98-107); Estimated GFR 107.07 (mL/min/1.73m2); Glucose 113 mg/dL (74-106); Potassium 4.0 mmol/L (3.5-5.1); Sodium 129 mmol/L (136-145)
[2024-12-11 18:59] LABS: Troponin I 7 ng/L (<or=51)
--- NOTE | 2024-12-11 20:31 | DI.[facility]_ITS ---
PROCEDURE INFORMATION: Exam: CTA Chest With Contrast Exam date and time: 12/11/2024 6:39 PM Age: 69 years old Clinical indication: Other: Shortness of breath TECHNIQUE: Imaging protocol: Computed tomographic angiography of the chest with contrast. Exam focused on the arteries. 3D rendering (Not supervised by radiologist): MIP and/or 3D reconstructed images were created by the technologist. Contrast material: OMNIPAQUE 350; Contrast volume: 60 ml; Contrast route: INTRAVENOUS (IV); COMPARISON: CT CHEST PE CTA 11/30/2024 9:14 PM FINDINGS: Tubes, catheters and devices: Right IJ infusion port in place. Pulmonary arteries: Normal. No pulmonary emboli. Aorta: Unremarkable. No aortic aneurysm. No aortic dissection. Lungs: 4.4 cm right hilar mass highly suggestive of malignancy. This partially surrounds the right middle and lower lobe pulmonary artery branches and produces occlusion of the bronchus intermedius. Endobronchial opacification extends into right middle and lower lobe bronchi. Left lung appears clear. Mild changes of emphysema noted in both lungs. These findings overall appear similar to previous. Pleural spaces: Unremarkable. No pneumothorax. No pleural effusion. Heart: Unremarkable. No cardiomegaly. No pericardial effusion. Lymph nodes: Unremarkable. No enlarged lymph nodes. Bones/joints: Scattered small sclerotic lesions noted throughout the visualized osseous structures suggestive of osseous metastatic disease. Gvya-wu-fukqfjhh degenerative disc changes throughout the thoracic spine. No acute fracture. Soft tissues: Unremarkable. IMPRESSION: Stable findings of right hilar mass and associated changes highly suggestive of malignancy. No evidence of pulmonary embolus, acute aortic pathology or acute infiltrate. No significant change from previous. Dictated and Authenticated by: Milo Newby MD. Orderin Deidre Villanueva MD
[2024-12-11 20:33] LABS: Troponin I 8 ng/L (<or=51)
[2024-12-11 21:34] LABS: COVID-19 PCR Negative (Negative); RSV PCR Negative (Negative)
[2024-12-11] MEDS: Dexamethasone 4 MG TAB 8 MG PO (21:43)
[2024-12-11] MEDS: Doxycycline Hyclate 100 MG CAP PO (21:43)
[2024-12-11 22:02] VITALS: BP 134/74; PULSE 74; RESP 18; O2SAT 97
[2024-12-11] MEDS: Heparin 500 UNITS/5 ML SYRINGE (22:04)
--- NOTE | 2024-12-12 17:58 | NUR.NOTE ---
Spoke with patient at great lengths going over her er visit, MD orders, side effects of medication.
== END 2024-12-11 22:03 | disposition home or self-care (01) ==
PROVIDERS: Emergency Provider Emergency Medicine; PCP Family Medicine
DX: J96.11 Chronic respiratory failure with hypoxia (principal); J44.9 Chronic obstructive pulmonary disease, unspecified; C34.91 Malignant neoplasm of unspecified part of right bronchus or lung; C78.7 Secondary malignant neoplasm of liver and intrahepatic bile duct; C79.51 Secondary malignant neoplasm of bone; Z87.891 Personal history of nicotine dependence
CPT/HCPCS: 36415; 71275; 80048; 87637; 93005; 99285; 84484; 85025; 93010; J1642; J3490; J8540

== ENCOUNTER 2025-01-14 02:02 | Outpatient (RCR) | payer MEDICARE, MEDICAID, SELFPAY ==
[2024-12-23] MEDS: Normal Saline Flush 10 ML SYR IVP (09:12)
[2024-12-23 09:24] LABS: Abs Immature Grans 0.04 10^3/uL (0.0-0.06); HCT 37.4 % (36.0-46.0); HGB 12.8 g/dL (11.2-15.7); Immature Grans % 0.7 %; MCH 29.2 pg (27.0-33.0); MCHC 34.2 % (32.0-36.0); MCV 85 fL (80-95); MPV 8.7 fL (8.0-11.0); Platelet Count 190 10^3/uL (130-400); RBC 4.39 10^6/uL (3.93-5.22); RDW 14.7 % (11.7-14.6); RDW-SD 45.2 fL; WBC 5.46 10^3/uL (4.4-10.8)
[2024-12-23 09:57] LABS: ALT 16 U/L (14-59); AST 13 U/L (15-37); Albumin 3.6 g/dL (3.4-5.0); Alkaline Phosphatase 52 U/L (46-116); Anion Gap 7.3 mmol/L (3-11); BUN 14 mg/dL (7-18); Bilirubin, Total 0.2 mg/dL (0.2-1.0); CO2 30.7 mmol/L (21.0-32.0); Calcium 9.0 mg/dL (8.5-10.1); Chloride 94 mmol/L (98-107); Glucose 112 mg/dL (74-106); Magnesium 1.8 mg/dL (1.8-2.4); Potassium 3.4 mmol/L (3.5-5.1); Sodium 132 mmol/L (136-145); Total Protein 6.3 g/dL (6.4-8.2)
[2024-12-23 11:09] LABS: TSH 6.44 uIU/mL (0.36-3.74)
[2025-01-14 09:54] LABS: Abs Immature Grans 0.02 10^3/uL (0.0-0.06); HCT 37.4 % (36.0-46.0); HGB 12.8 g/dL (11.2-15.7); Immature Grans % 0.6 %; MCH 29.9 pg (27.0-33.0); MCHC 34.2 % (32.0-36.0); MCV 87 fL (80-95); MPV 8.7 fL (8.0-11.0); Platelet Count 193 10^3/uL (130-400); RBC 4.28 10^6/uL (3.93-5.22); RDW 15.8 % (11.7-14.6); RDW-SD 50.4 fL; WBC 3.45 10^3/uL (4.4-10.8)
[2025-01-14 10:07] LABS: ALT 24 U/L (14-59); AST 20 U/L (15-37); Albumin 3.0 g/dL (3.4-5.0); Alkaline Phosphatase 74 U/L (46-116); Anion Gap 7.8 mmol/L (3-11); BUN 10 mg/dL (7-18); Bilirubin, Total 0.3 mg/dL (0.2-1.0); CO2 28.2 mmol/L (21.0-32.0); Calcium 8.0 mg/dL (8.5-10.1); Chloride 96 mmol/L (98-107); Glucose 103 mg/dL (74-106); Magnesium 1.9 mg/dL (1.8-2.4); Potassium 3.6 mmol/L (3.5-5.1); Sodium 132 mmol/L (136-145); Total Protein 6.1 g/dL (6.4-8.2)
[2025-01-14 10:17] LABS: TSH 4.34 uIU/mL (0.36-3.74)
[2025-01-14] MEDS: Normal Saline Flush 10 ML SYR IVP (10:58)
== END 2025-01-17 23:59 | disposition home or self-care (01) ==
LOC: INF 02:02
PROVIDERS: Nurse Practitioner Family; PCP Family Medicine; Visit Provider Internal Medicine Medical Oncology
DX: C34.91 Malignant neoplasm of unspecified part of right bronchus or lung (principal); Z79.899 Other long term (current) drug therapy; Z45.2 Encounter for adjustment and management of vascular access device
CPT/HCPCS: 36591; 80053; 83735; 84439; 84443; 85025

== ENCOUNTER 2025-02-03 02:20 | Outpatient (RCR) | payer MEDICARE, MEDICAID, SELFPAY ==
[2025-02-03] MEDS: Normal Saline Flush 10 ML SYR IVP (10:21)
[2025-02-03 10:34] LABS: Abs Immature Grans 0.02 10^3/uL (0.0-0.06); HCT 35.0 % (36.0-46.0); HGB 12.1 g/dL (11.2-15.7); Immature Grans % 0.6 %; MCH 30.1 pg (27.0-33.0); MCHC 34.6 % (32.0-36.0); MCV 87 fL (80-95); MPV 8.7 fL (8.0-11.0); Platelet Count 214 10^3/uL (130-400); RBC 4.02 10^6/uL (3.93-5.22); RDW 14.7 % (11.7-14.6); RDW-SD 47.4 fL; WBC 3.29 10^3/uL (4.4-10.8)
[2025-02-03 10:45] LABS: Magnesium 1.7 mg/dL (1.6-2.6)
[2025-02-03 10:47] LABS: ALT 7 U/L (10-49); AST 16 U/L (<34); Albumin 3.7 g/dL (3.4-5.0); Alkaline Phosphatase 70 U/L (46-116); Anion Gap 6.6 mmol/L (3-11); BUN 9 mg/dL (9-23); Bilirubin, Total 0.20 mg/dL (0.2-1.2); CO2 29.4 mmol/L (20.0-31.0); Calcium 8.6 mg/dL (8.3-10.6); Chloride 103 mmol/L (98-107); Glucose 83 mg/dL (74-106); Potassium 3.8 mmol/L (3.5-5.1); Sodium 139 mmol/L (136-145); Total Protein 5.8 g/dL (5.7-8.2)
[2025-02-03 10:49] LABS: TSH 2.90 uIU/mL (0.55-4.78)
== END 2025-02-16 23:59 | disposition home or self-care (01) ==
LOC: INF 02:20
PROVIDERS: Nurse Practitioner Family; PCP Physician Assistant Medical; Visit Provider Internal Medicine Medical Oncology
DX: C34.91 Malignant neoplasm of unspecified part of right bronchus or lung (principal); Z79.899 Other long term (current) drug therapy; Z45.2 Encounter for adjustment and management of vascular access device
CPT/HCPCS: 36591; 80053; 83735; 84439; 84443; 85025

== ENCOUNTER → 2025-02-19 01:10 | Outpatient (CLI) | payer MEDICARE, MEDICAID, SELFPAY ==
--- NOTE | 2025-02-19 | DI.CT_ITS ---
Exam(s) CT CHEST W EXAM: CT CHEST W CLINICAL HISTORY: STAGE 4 LUNG CANCER RT, C34.91, SCLC RESTAGING TECHNIQUE: Imaging Protocol: Axial computed tomography images with coronal and sagittal reformatted images were created and reviewed. Computer aided detection (CAD) was utilized. CONTRAST MATERIAL: Intravenous: Omnipaque 350contrast volume:100 mL. COMPARISON: CT CT CHEST PE ABD PELVIS W from 05/27/[address] CHEST PE CTA from 11/30/[address] CHEST PE CTA from 12/11/2024 FINDINGS: Tracheobronchial tree: There is mucous plugging seen in several branches to the right lower lobe. No evidence of bronchiectasis. Pulmonary parenchyma: Moderate centrilobular emphysema is present. There is no change in the appearance of the interstitium compared to the prior examination. There are no new focal consolidating infiltrates. The opacities in the right lower lobe are unchanged. The right middle lobe linear infiltrate has resolved. There has been significant decrease in size of the right hilar mass which now measures 2.2 x 1.8 cm. Mediastinum and Carolyn: No dominant adenopathy or fluid collection. The esophagus is unremarkable. Thyroid gland: Unremarkable. Pleura: No effusion or pneumothorax. Heart: The heart is not dilated. Three vessel coronary artery calcification and/or stents are present. No pericardial effusion. Aorta: Thoracic aorta non-dilated. Atherosclerotic calcification is present. There is no evidence of dissection. Pulmonary arteries: No pulmonary emboli are identified. Upper abdomen: There has been a significant decrease in number of the hepatic masses since 05/27/2024. There are few hypodense lesions present including in the left lobe. Lymph nodes: Within normal limits. Bones: Numerous sclerotic foci are seen in the bones consistent with osseous metastatic disease. Tubes, Catheters, and Lines: There is a right chest port in place. Soft tissues: Unremarkable. IMPRESSION: 1. Interval decrease in size of the right hilar mass which now measures 2.2 x 1.8 cm compared with 4 cm on 12/11/2024. 2. Significant decrease in size and number of the hepatic metastases since 05/27/2024. 3. Findings of osseous metastatic disease. 4. Improvement in the pulmonary opacities since 12/11/2024. RADIATION DOSE DELIVERED: 2,032.1mGy.cm Total DLP DATA REPOSITORY: All CT scans at this facility are submitted to the National Radiology Data Registry (NRDR) Dose Index Registry (DIR) with the [employer] (ACR). RADIATION OPTIMIZATION: All CT scans at this facility use at least one of these dose optimization techniques: automated exposure control; mA and/or kV adjustment per patient size (includes targeted exams where dose is matched to clinical indication); or iterative reconstruction.
--- NOTE | 2025-02-19 | DI.CT_ITS ---
Exam(s) CT HEAD WO/W EXAM: CT HEAD WO/W CLINICAL HISTORY: RT LUNG CA C34.91 SEC TO BONE C79.51 SEC TO LIVER C78.7 ? BRAIN METS. TECHNIQUE: Imaging Protocol: Axial computed tomography images with coronal and sagittal reformatted images were created and reviewed. CONTRAST MATERIAL: Intravenous: Omnipaque 350 contrast volume:100 mL COMPARISON: CT CT BRAIN NECK CTA from 07/25/[address] CHEST W from 02/19/2025 FINDINGS: Ventricles and Extra axial spaces: Normal in size and morphology for the patient's age. Hemorrhage: None. Cerebral parenchyma: There are areas of decreased attenuation in the white matter most consistent with chronic microvascular ischemic disease. There is no evidence of an acute territorial infarct. Enhancement: No suspicious enhancement. [place]: Unremarkable. Midline shift: None. Brainstem/Cerebellum: Normal. Calvarium: Normal. Visualized Paranasal sinuses/Mastoids: Clear. Soft tissues: Unremarkable. IMPRESSION: 1. There is no evidence of intracranial metastatic disease. 2. No acute intracranial process. RADIATION DOSE DELIVERED: 2,032.1mGy.cm Total DLP 2,032.1mGy.cm Total DLP DATA REPOSITORY: All CT scans at this facility are submitted to the National Radiology Data Registry (NRDR) Dose Index Registry (DIR) with the [employer] (ACR). RADIATION OPTIMIZATION: All CT scans at this facility use at least one of these dose optimization techniques: automated exposure control; mA and/or kV adjustment per patient size (includes targeted exams where dose is matched to clinical indication); or iterative reconstruction.
[2025-02-19] MEDS: Omnipaque 350 MG/ML 100 ML BTL IJ (10:23)
[2025-02-19] MEDS: Normal Saline - Diluent 50 ML VIAL IJ (10:23)
[2025-02-19] MEDS: Normal Saline Flush 10 ML SYR IVP (10:24)
== END ==
LOC: DI 01:11
PROVIDERS: PCP Physician Assistant Medical; Visit Provider Nurse Practitioner Family
DX: C34.91 Malignant neoplasm of unspecified part of right bronchus or lung (principal)
CPT/HCPCS: 70470; 71260; J3490

== ENCOUNTER 2025-02-24 13:00 | Outpatient (RCR) | payer MEDICARE, MEDICAID, SELFPAY ==
[2025-02-19] MEDS: Normal Saline Flush 10 ML SYR IVP (09:48)
[2025-02-19 09:56] LABS: Abs Immature Grans 0.01 10^3/uL (0.0-0.06); HCT 32.4 % (36.0-46.0); HGB 11.2 g/dL (11.2-15.7); Immature Grans % 0.4 %; MCH 30.5 pg (27.0-33.0); MCHC 34.6 % (32.0-36.0); MCV 88 fL (80-95); MPV 9.2 fL (8.0-11.0); Platelet Count 187 10^3/uL (130-400); RBC 3.67 10^6/uL (3.93-5.22); RDW 14.4 % (11.7-14.6); RDW-SD 46.2 fL; WBC 2.78 10^3/uL (4.4-10.8)
[2025-02-19 10:26] LABS: Magnesium 1.8 mg/dL (1.6-2.6)
[2025-02-19 10:28] LABS: ALT 7 U/L (10-49); AST 17 U/L (<34); Albumin 3.7 g/dL (3.2-5.0); Alkaline Phosphatase 83 U/L (46-116); Anion Gap 9 mmol/L (3-11); BUN 10 mg/dL (9-23); Bilirubin, Total 0.30 mg/dL (0.2-1.2); CO2 27.0 mmol/L (20.0-31.0); Calcium 8.7 mg/dL (8.3-10.6); Chloride 106 mmol/L (98-107); Glucose 112 mg/dL (74-106); Potassium 3.5 mmol/L (3.5-5.1); Sodium 142 mmol/L (136-145); Total Protein 6.1 g/dL (5.7-8.2)
[2025-02-19 10:30] LABS: TSH 4.71 uIU/mL (0.55-4.78)
[2025-02-24 13:37] LABS: Abs Immature Grans 0.02 10^3/uL (0.0-0.06); HCT 34.8 % (36.0-46.0); HGB 12.2 g/dL (11.2-15.7); Immature Grans % 0.6 %; MCH 30.8 pg (27.0-33.0); MCHC 35.1 % (32.0-36.0); MCV 88 fL (80-95); MPV 9.1 fL (8.0-11.0); Platelet Count 222 10^3/uL (130-400); RBC 3.96 10^6/uL (3.93-5.22); RDW 13.7 % (11.7-14.6); RDW-SD 43.9 fL; WBC 3.62 10^3/uL (4.4-10.8)
[2025-02-24] MEDS: Normal Saline Flush 10 ML SYR IVP (13:37)
[2025-02-24 13:48] LABS: Magnesium 1.8 mg/dL (1.6-2.6)
[2025-02-24 13:50] LABS: ALT 7 U/L (10-49); AST 16 U/L (<34); Albumin 3.9 g/dL (3.2-5.0); Alkaline Phosphatase 97 U/L (46-116); Anion Gap 7.5 mmol/L (3-11); BUN 6 mg/dL (9-23); Bilirubin, Total 0.40 mg/dL (0.2-1.2); CO2 27.5 mmol/L (20.0-31.0); Calcium 8.5 mg/dL (8.3-10.6); Chloride 103 mmol/L (98-107); Glucose 122 mg/dL (74-106); Potassium 3.9 mmol/L (3.5-5.1); Sodium 138 mmol/L (136-145); Total Protein 6.2 g/dL (5.7-8.2)
[2025-02-24 13:52] LABS: TSH 4.56 uIU/mL (0.55-4.78)
== END 2025-03-19 23:59 | disposition home or self-care (01) ==
LOC: INF 13:00
PROVIDERS: Nurse Practitioner Family; PCP Physician Assistant Medical; Visit Provider Internal Medicine Medical Oncology
DX: C34.91 Malignant neoplasm of unspecified part of right bronchus or lung (principal); Z79.899 Other long term (current) drug therapy; Z45.2 Encounter for adjustment and management of vascular access device
CPT/HCPCS: 36591; 80053; 96523; 83735; 84439; 84443; 85025

== ENCOUNTER 2025-03-09 15:05 | Emergency (ER) | payer MEDICARE, MEDICAID, SELFPAY ==
[2025-03-09] VITALS (19 sets, daily range): BP systolic 110–141; BP diastolic 68–79; PULSE 71–103; RESP 16–25; TEMP 36.9; O2SAT 96–100
--- NOTE | 2025-03-09 15:25 | W.ED.GENAD ---
Discharge Plan Disposition Patient Disposition: Home Discharge Details Clinical Impression: COPD with acute exacerbation Primary Care Provider: Yaneth Dickson ED Provider: Rich Jiang Home Meds and New Rx's Prescriptions: New doxycycline hyclate 100 mg capsule 100 mg PO BID 5 Days Qty: 10 0RF Continued Atrovent HFA 17 mcg/actuation HFA aerosol inhaler See Rx Instructions inhalation DIRECTED Rx Instructions: inhaled as directed; sqiunglvxz-hzgjwcinoj-rit-cod [id number] mg capsule 1 cap PO QID PRN albuterol sulfate [Ventolin HFA] 90 mcg/actuation HFA aerosol inhaler See Rx Instructions inhalation DIRECTED Rx Instructions: inhaled as directed; calcium carb,glucon-vitamin D2 500 mg-5 mcg (200 unit) tablet 1 tab PO DAILY sertraline 50 mg tablet 50 mg PO DAILY arformoterol [Brovana] 15 mcg/2 mL solution for nebulization 15 mcg inhalation DAILY PRN lorazepam 1 mg tablet 1 mg PO Q4H PRN oxycodone 5 mg tablet 10 mg PO Q4H PRN atorvastatin [Lipitor] 40 mg tablet 40 mg PO DAILY prochlorperazine maleate [Compazine] 5 mg tablet 5 mg PO .Q6 PRN ondansetron HCl 4 mg tablet 4 mg PO Q8H naloxone [Narcan] 4 mg/actuation spray,non-aerosol 4 mg intranasal Q3M PRN Rx Instructions: spray 1 dose into ONE nostril; alternate nostrils w each dose until help arrives Zepzelca 4 mg recon soln IV budesonide 0.25 mg/2 mL suspension for nebulization 0.5 mg inhalation DAILY lorazepam 1 mg tablet 1 mg PO TID PRN ipratropium bromide 17 mcg/actuation HFA aerosol inhaler 2 puff inhalation QID doxycycline hyclate 100 mg capsule 100 mg PO BID Qty: 10 0RF Discharge Instructions Additional Instructions: You are seen in the emergency department for shortness of breath. Your CAT scan showed no sign of pneumonitis. You likely have an exacerbation of your chronic obstructive pulmonary disease for which you should take these these antibiotics as directed over the next several days. You received a dose of steroids in the emergency department. Please return to the emergency department if you develop worsening shortness of breath fevers chills nausea or vomiting. Please also follow-up with your primary care provider. Stand Alone Forms: Portal Information HPI General Date/Time Provider Initiated Documentation: 03/09/25 15:25. HPI Narrative: MDM This is a wheezing mildly tachycardic but normothermic and not hypotensive 69-year-old female with prolonged expiratory wheeze concerning for acute COPD exacerbation. Will obtain venous blood gas to assess for acidemia and hypercarbia. I considered sepsis however patient has not had fevers and has reassuring vitals I did not feel she required broad-spectrum antibiotics or blood cultures. I considered PE however patient is not having chest pain so I did not feel that she required a CT angiogram. She has no signs of mucositis. She certainly could have pneumonitis or pneumonia so we will obtain a chest CT scan to increase sensitivity. Patient has had similar symptoms in the past and received dexamethasone and doxycycline which improved her symptoms. She did not have any black or bloody stools to suggest increased risk for GI bleed. No trauma so doubt pneumothorax. Will attempt treatment with nebulized ipratropium albuterol and dexamethasone. Will swab for flu RSV and COVID. Will obtain screening ECG. Will send troponins to assess for ACS. 5:02 PM No BOBBY. Mild hypocalcemia. CBC with worsened anemia. Leukopenia persistent. No thrombocytopenia. I signed patient out to Dr. Benitez. If her ECG troponins CT scan of her chest are reassuring she would likely benefit from treatment with doxycycline. 5:[address] scan was read without any obvious infiltrates. Patient had bronchitis. Patient is pending venous blood gas, 2 troponins 1 hour apart EKG fluids well. Patient was signed out to Dr. Benitez. Will write patient up for discharge with diagnosis of COPD exacerbation. HPI History of Present Illness This is a patient with a history of asthma and COPD presenting with symptoms suggestive of pneumonitis. The patient reports a recurrence of pneumonitis, which she attributes to radiation therapy received approximately 1.5 months ago. Over the past month, she has experienced progressive dyspnea, even during minimal exertion such as walking to the bathroom. Her oxygen saturation levels have been observed to drop to 84 percent during these episodes but recover to the 90s within 5 minutes of rest. These episodes have been increasing in frequency. She describes a dry cough with thick sputum production over the past 2 weeks but reports no febrile episodes. She experiences chest pain, likened to suffocation, which resolves upon normalization of her breathing. She also reports tachycardia at night, with heart rates reaching up to 130 beats per minute, which subsequently decrease to 110 beats per minute. She has no history of thromboembolic events in her lower extremities or lungs. She recalls an episode of hemoptysis, which resolved upon resumption of chemotherapy. Her last chemotherapy session was on 02/25/2025, with the next session scheduled for 03/2025. She reports no oral ulcers. Her supplemental oxygen requirement has increased from 3 to 4 liters. Exam General: Well-appearing in no acute distress speaking in complete sentences. Head: Normocephalic, atraumatic. Eye: Extraocular eye movements intact. No conjunctival injection. No scleral icterus. Ear, nose, mouth, throat: Grossly normal inspection. Normal voice, handling secretions normally. Neck: Trachea midline. Cardiovascular: Well-perfused distal extremities. Rapid regular rate. Respiratory: Nonlabored respiration. Decreased breath sounds bilateral bases. End expiratory wheezes. Gastrointestinal: Nondistended abdomen. Musculoskeletal: No edema. Moving all 4 extremities spontaneously. Skin: Normal for age and race, grossly normal temperature and turgor. No acute rash. Neurologic: Alert and appropriate, no apparent acute deficits. Psychiatric: Mood and manner are appropriate. Grooming and personal hygiene are appropriate. Related Data Home Medications ?Medication ?Instructions ?Recorded ?Confirmed albuterol sulfate 90 mcg/actuation See Rx Instructions inhalation 01/11/24 01/29/25 aerosol inhaler (Ventolin HFA) DIRECTED butalbital 50 mg-acetaminophen 325 1 cap PO QID PRN 01/11/24 01/29/25 mg-caffeine 40 mg-codeine 30 mg cap ipratropium bromide 17 See Rx Instructions inhalation 01/11/24 01/29/25 mcg/actuation HFA aerosol inhaler DIRECTED (Atrovent HFA) arformoterol 15 mcg/2 mL solution 15 mcg inhalation DAILY PRN 08/14/24 01/29/25 for nebulization (Brovana) calcium 500 mg (as 1 tab PO DAILY 08/14/24 01/29/25 carbonate,gluconate)-vit D2 5 mcg (200 unit) tablet sertraline 50 mg tablet 50 mg PO DAILY 08/14/24 01/29/25 lorazepam 1 mg tablet 1 mg PO Q4H PRN 08/27/24 01/29/25 oxycodone 5 mg tablet 10 mg PO Q4H PRN 08/27/24 01/29/25 doxycycline hyclate 100 mg capsule 100 mg PO BID #10 caps 12/11/24 01/29/25 atorvastatin 40 mg tablet (Lipitor) 40 mg PO DAILY 01/29/25 01/29/25 budesonide 0.25 mg/2 mL suspension 0.5 mg inhalation DAILY 01/29/25 01/29/25 for nebulization ipratropium bromide 17 2 puff inhalation QID 01/29/25 01/29/25 mcg/actuation HFA aerosol inhaler lorazepam 1 mg tablet 1 mg PO TID PRN 01/29/25 01/29/25 lurbinectedin 4 mg intravenous IV 01/29/25 01/29/25 solution (Zepzelca) naloxone 4 mg/actuation nasal 4 mg intranasal Q3M PRN 01/29/25 01/29/25 spray (Narcan) ondansetron HCl 4 mg tablet 4 mg PO Q8H 01/29/25 01/29/25 prochlorperazine maleate 5 mg 5 mg PO .Q6 PRN 01/29/25 01/29/25 tablet (Compazine) doxycycline hyclate 100 mg capsule 100 mg PO BID 5 days #10 caps 03/09/25 Previous Rx's ?Medication ?Instructions ?Recorded doxycycline hyclate 100 mg capsule 100 mg PO BID #10 caps 12/11/24 doxycycline hyclate 100 mg capsule 100 mg PO BID 5 days #10 caps 03/09/25 Allergies Allergy/AdvReac Type Severity Reaction Status Date / Time prednisone Allergy Unknown Unknown Verified 03/09/25 15:15 tetracycline Allergy Unknown Unknown Verified 03/09/25 15:15 insect venom AdvReac Unknown urticaria Verified 03/09/25 15:15 Penicillins AdvReac Unknown urticaria Verified 03/09/25 15:15 General Stated Complaint: SOB ROBERT: 2 Course Vital Signs Vital signs: Vital Signs Temperature 36.9 C 03/09/25 15:07 Pulse 101 H 03/09/25 15:07 Respiratory Rate 20 03/09/25 15:07 Blood Pressure 116/72 03/09/25 15:07 Pulse Oximetry 96 03/09/25 15:07 Temperature 36.9 C 03/09/25 15:17 Temperature Source Temporal Artery Scan 03/09/25 15:17 Pulse 101 H 03/09/25 15:17 Respiratory Rate 20 03/09/25 15:17 Blood Pressure 116/72 03/09/25 15:17 Blood Pressure Position Sitting 03/09/25 15:17 Pulse Oximetry 96 03/09/25 15:17 Oxygen Delivery Method Room Air 03/09/25 15:17 Oxygen Flow Rate 0 03/09/25 15:17 Medical Decision Making Quality:SDOH Health Related Social Needs: Health related social needs risk of homeless Health related social needs details no issues PFSH All Active Problems (Updated 03/09/25 @ 17:12 by Rich Jiang MD) COPD with acute exacerbation (Acute) Acute bacterial sialadenitis (Acute) Advance care planning (Acute) Cancer related pain (Acute) Generalized anxiety disorder (Acute) Metastasis to bone (Acute) Metastasis to liver (Acute) 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) Anxiety (Chronic) Hyponatremia (Acute) Sacroiliac inflammation (Acute) Osteopenia (Acute) Nicotine dependence (Acute) Neck pain (Acute) Migraine (Chronic) Malignant neoplasm of skin (Acute) Lyme disease (Acute) Lung nodules (Acute) Hypoglycemia (Acute) History of Lyme disease (Acute) History of chest pain (Acute) Exposure to lead (Acute) Disc disease, degenerative, lumbar or lumbosacral (Acute) Degeneration of cervical intervertebral disc (Acute) COPD (chronic obstructive pulmonary disease) (Chronic) Arthropathy (Acute) Medical History (Updated 03/09/25 @ 17:12 by Rich Jiang MD) Palliative care patient Neutropenia Chronic pain Medication monitoring encounter Hepatitis C carrier Chronic hepatitis C Allergic rhinitis Surgical History Hx of removal of cyst H/O tubal ligation H/O laparoscopy 03/20/2002 Family History Mother Amyotrophic lateral sclerosis Heart disease Hx of osteoporosis Father Cancer Social History Smoking/Tobacco Use Status: Former Tobacco Use Quit Date: 04/07/24 Tobacco: How many years used: 30 Smoking risk assessment performed?: Yes Alcohol Intake: former Substance use type: does not use and sedatives Housing: house Additional Social history: Current [employer].2ppd 40yrs.Comments started age 23 2ppd on average
--- NOTE | 2025-03-09 15:30 | DI.CT_ITS ---
Exam(s) CT CHEST WO EXAM: CT CHEST WO CLINICAL HISTORY: Cough shortness of breath. TECHNIQUE: Imaging protocol: Axial computed tomography images were obtained and coronal and sagittal reformatted images were created and reviewed. Lung Computer Aided Detection (CAD) was utilized. COMPARISON: CT CT CHEST W from 02/19/[address] HEAD WO/W from 02/19/2025 FINDINGS: Tracheobronchial tree: Mucous plugging in bronchials in the right lower lobe. There is mild bronchial wall thickening particularly in the right lower lobe. Pulmonary parenchyma: Emphysematous changes are seen in the lungs. There has been no change in size of the right hilar mass since 02/19/2025. There is continued compression of the right lower lobe bronchus and mucous plugging in distal right lower lobe airways. There is increase in the interstitial markings particularly in the right upper lobe and left lingula since 02/19/2025. There are no new focal consolidating infiltrates present. Mediastinum and Carolyn: No dominant adenopathy or fluid collection. The esophagus is unremarkable. Thyroid gland: Unremarkable. Pleura: No effusion or pneumothorax. Heart: The heart is not dilated. Coronary artery calcifications are present no pericardial effusion. Aorta: Thoracic aorta non-dilated. Atherosclerotic calcification is present. Upper abdomen: Unremarkable. Lymph nodes: Within normal limits. Tubes, Catheters, and Lines: There is a right chest wall port in place. Soft tissues: Unremarkable. Bones:There is again seen osseous sclerotic metastases. IMPRESSION: 1. Slight increase in the interstitial markings particularly in the right upper lobe in the left lingula since 02/19/2025. This may represent an interstitial pneumonia or interstitial edema. 2. Bronchial wall thickening and mucous plugging seen in the right lower lobe suspicious for bronchitis. 3. Stable right hilar mass since 02/19/2025. 4. Stable osseous metastatic disease. 5. The preliminary [facility] report was reviewed. RADIATION DOSE DELIVERED: 219.7mGy.cm Total DLP 219.7mGy.cm Total DLP DATA REPOSITORY: All CT scans at this facility are submitted to the National Radiology Data Registry (NRDR) Dose Index Registry (DIR) with the [employer] ([employer]). RADIATION OPTIMIZATION: All CT scans at this facility use at least one of these dose optimization techniques: automated exposure control; mA and/or kV adjustment per patient size (includes targeted exams where dose is matched to clinical indication); or iterative reconstruction.
[2025-03-09 16:14] LABS: Abs Immature Grans 0.01 10^3/uL (0.0-0.06); HCT 29.4 % (36.0-46.0); HGB 10.2 g/dL (11.2-15.7); Immature Grans % 0.3 %; MCH 30.3 pg (27.0-33.0); MCHC 34.7 % (32.0-36.0); MCV 87 fL (80-95); MPV 9.1 fL (8.0-11.0); Platelet Count 214 10^3/uL (130-400); RBC 3.37 10^6/uL (3.93-5.22); RDW 13.2 % (11.7-14.6); RDW-SD 41.8 fL; WBC 3.36 10^3/uL (4.4-10.8)
[2025-03-09 16:34] LABS: Anion Gap 7.1 mmol/L (3-11); BUN 10 mg/dL (9-23); CO2 26.4 mmol/L (20.0-31.0); Calcium 8.0 mg/dL (8.3-10.6); Chloride 98 mmol/L (98-107); Glucose 111 mg/dL (74-106); Potassium 4.0 mmol/L (3.5-5.1); Sodium 132 mmol/L (136-145)
[2025-03-09] MEDS: Ondansetron 4 MG/2 ML VIAL IVP (16:38)
[2025-03-09] MEDS: Dexamethasone 4 MG/ML VIAL 8 MG IVP (16:38)
[2025-03-09] MEDS: Normal Saline 500 ML IV (16:38)
[2025-03-09] MEDS: Doxycycline Hyclate 100 MG CAP PO (16:38)
--- NOTE | 2025-03-09 16:45 | RT.EKG_ITS ---
APPROVED REPORT Exam: Resting ECG Reason for Exam: Shortness of breath Patient Location: E HR:95 bpm ECG Measurements Heart Rate 95 AXIS SD 151 P 72 QRSd 87 QRS 73 QT 355 T 61 QTc 447 Conclusion Sinus rhythm...normal P axis, V-rate 60- 99 No STEMI
--- NOTE | 2025-03-09 16:54 | DI.[facility]_ITS ---
PROCEDURE INFORMATION: Exam: CT Chest Without Contrast; Diagnostic Exam date and time: 03/09/2025 4:36 PM Age: 69 years old Clinical indication: Cough and shortness of breath TECHNIQUE: Imaging protocol: Diagnostic computed tomography of the chest without contrast. 3D rendering (Not supervised by radiologist): MIP and/or 3D reconstructed images were created by the technologist. COMPARISON: CT CHEST W 02/19/2025 9:58 AM FINDINGS: Tubes, catheters and devices: Right-sided Port-A-Cath in place. Lungs: There is mild to moderate right lower lobe atelectasis. There is moderate underlying COPD. There is some spiculated scars in the right upper lobe. These are unchanged from prior study. Right infrahilar mass is markedly reduced in size compared to previous exam. There is bronchial wall thickening somewhat diffusely, most severe at the right lung base. Pleural spaces: Unremarkable. No pneumothorax. No pleural effusion. Heart: Unremarkable. No cardiomegaly. No pericardial effusion. Coronary arteries: Coronary artery calcifications/stents. Lymph nodes: Mild mediastinal adenopathy. Vasculature: Moderate atherosclerotic change noted in the vasculature. Bones/joints: There are scattered osteo sclerotic lesions seen throughout the axial and appendicular skeleton consistent with diffuse metastatic disease, unchanged from prior. Soft tissues: Unremarkable. Other findings: lk,. IMPRESSION: 1. Bronchitis, most severe at the right lung base. 2. Coarse right lower lobe atelectasis. Early consolidation is considered less likely. 3. Marked size reduction right infrahilar mass. 4. No change bone metastases. Dictated and Authenticated by: Minnie Art MD. Orderin Deidre Villanueva MD
[2025-03-09 17:27] LABS: Lab Add On Test DONE
[2025-03-09] MEDS: Albuterol/Ipratropium 3 ML UPD VIAL UPD (17:42)
[2025-03-09 17:44] LABS: Troponin I 3 ng/L (<35)
[2025-03-09 17:58] LABS: BE (Venous) 1 mmol/L (-2-3); HCO3 (Venous) 26 mmol/L (23-28); O2 Sat (Venous) 91 %; TCO2 (Venous) 24 mmol/L (24-29); pCO2 (Venous) 44 mmHg (41-51); pO2 (Venous) 61 mmHg
[2025-03-09 18:16] LABS: Troponin I 3 ng/L (<35)
[2025-03-09 18:34] LABS: COVID-19 PCR Negative (Negative); RSV PCR Negative (Negative)
== END 2025-03-09 19:30 | disposition home or self-care (01) ==
PROVIDERS: Emergency Medicine; Emergency Provider General Practice; PCP Physician Assistant Medical
DX: J44.1 Chronic obstructive pulmonary disease with (acute) exacerbation (principal)
CPT/HCPCS: 36415; 71250; 80048; 82805; 87637; 93005; 94640; 96361; 96374; 96375; 99284; 84484; 85025; 93010; J1100; J2405; J7620

== ENCOUNTER 2025-03-18 00:09 | Outpatient (RCR) | payer MEDICAID, SELFPAY ==
[2025-03-18 11:27] LABS: Abs Immature Grans 0.04 10^3/uL (0.0-0.06); HCT 32.0 % (36.0-46.0); HGB 11.2 g/dL (11.2-15.7); Immature Grans % 0.8 %; MCH 30.1 pg (27.0-33.0); MCHC 35.0 % (32.0-36.0); MCV 86 fL (80-95); MPV 8.6 fL (8.0-11.0); Platelet Count 206 10^3/uL (130-400); RBC 3.72 10^6/uL (3.93-5.22); RDW 13.2 % (11.7-14.6); RDW-SD 41.3 fL; WBC 4.85 10^3/uL (4.4-10.8)
[2025-03-18 11:45] LABS: ALT 11 U/L (10-49); AST 17 U/L (<34); Albumin 3.7 g/dL (3.2-5.0); Alkaline Phosphatase 94 U/L (46-116); Anion Gap 6.9 mmol/L (3-11); BUN 9 mg/dL (9-23); Bilirubin, Total 0.7 mg/dL (0.2-1.2); CO2 27.0 mmol/L (20.0-31.0); Calcium 8.5 mg/dL (8.3-10.6); Chloride 91 mmol/L (98-107); Glucose 107 mg/dL (74-106); Magnesium 1.7 mg/dL (1.6-2.6); Potassium 4.1 mmol/L (3.5-5.1); Sodium 125 mmol/L (136-145); Total Protein 5.9 g/dL (5.7-8.2)
[2025-03-18 11:46] LABS: TSH 3.58 uIU/mL (0.55-4.78)
[2025-03-18] MEDS: Normal Saline Flush 10 ML SYR IVP (16:06)
== END 2025-03-19 23:59 | disposition home or self-care (01) ==
LOC: INF 00:09
PROVIDERS: Nurse Practitioner Family; PCP Physician Assistant Medical; Visit Provider Internal Medicine Medical Oncology
DX: Z79.899 Other long term (current) drug therapy (principal); C34.91 Malignant neoplasm of unspecified part of right bronchus or lung; Z45.2 Encounter for adjustment and management of vascular access device
CPT/HCPCS: 36591; 80053; 83735; 84439; 84443; 85025